=== PATIENT | male | born 1945 | race Caucasian/White ===

== ENCOUNTER → 2016-12-30 | Outpatient (CLI) | payer MEDICARE, OTHER ==
--- NOTE | 2016-12-30 16:34 | CARD ---
APPROVED REPORT EXAM: Two-dimensional and M-mode echocardiogram with Doppler and color Doppler. Other Information Quality : Average Rhythm : NSR INDICATION Dyspnea Fatigue 2D DIMENSIONS RVDd3.2 (2.9-3.5cm)Left Atrium(2D)3.4 (1.6-4.0cm) IVSd1.2 (0.7-1.1cm)Aortic Root(2D)2.7 (2.0-3.7cm) LVDd4.1 (3.9-5.9cm)LVOT Diameter2.0 (1.8-2.4cm) PWd1.2 (0.7-1.1cm)LVDs2.6 (2.5-4.0cm) FS (%) 34.5 %SV51.3 ml LVEF(%)65.0 (>50%) Aortic Valve AoV Peak Tio.142.6cm/sAoV VTI35.4cm AO Peak GR.8.1mmHgLVOT Peak Tio.128.6cm/s LVOT VTI 27.29cmAO Mean GR.5mmHg ASAF (VMAX)2.73lm6HTW (VTI)2.51cm2 Mitral Valve MV E Efaigijo55.7cm/sMV DECEL BGIP718hj MV A Kthzoijw67.4cm/sMV E Mean Gr.2mmHg MV MYB67gsA/A Ratio1.0 MV A Sfvtkhbh305hxNNP (PHT)3.05cm2 TDI E/Lateral E'9.5E/Medial E'10.7 Pulmonary Valve PV Peak Icdtiwun228.0cm/sPV Peak Grad.5mmHg RVOT VTI23.9cm Pulmonary Vein S1 Oervhbhs45.0cm/sD2 Ftqojgls73.5cm/s LEFT VENTRICLE The left ventricle is normal size. There is borderline concentric left ventricular hypertrophy. Left ventricle systolic function is normal. The Ejection Fraction is 65%. There is normal LV segmental wal l motion. The left ventricular diastolic function and filling is normal for age. There is no ventricu lar septal defect visualized. RIGHT VENTRICLE The right ventricle is normal size. The right ventricular systolic function is normal. ATRIA The left atrium size is normal. The right atrium size is normal. The interatrial septum is intact wit h no evidence for an atrial septal defect or patent foramen ovale as noted on 2-D or Doppler imaging. AORTIC VALVE The aortic valve is mildly to moderately calcified. Doppler and Color Flow revealed no significant ao rtic regurgitation. There is no significant aortic valvular stenosis. MITRAL VALVE Mitral annular calcification is mild. There is no mitral valve stenosis. Doppler and Color Flow revea led no mitral valve regurgitation noted. TRICUSPID VALVE The tricuspid valve is normal in structure and function. Doppler and Color Flow revealed no tricuspid valve regurgitation noted. Unable to estimate PP pressure. There is no tricuspid valve stenosis. PULMONIC VALVE The pulmonic valve is not well visualized. Doppler and Color Flow revealed no pulmonic valvular regur gitation. There is no pulmonic valvular stenosis. GREAT VESSELS The aortic root is normal in size. Normal pulmonary venous flow (Doppler). The IVC is normal in size and collapses >50% with inspiration. PERICARDIAL EFFUSION There is no evidence of significant pericardial effusion. Critical Notification Critical Value: No <Conclusion> Left ventricle systolic function is normal. The Ejection Fraction is 65%. There is borderline concentric left ventricular hypertrophy. The left atrium size is normal. The right atrium size is normal. The aortic valve is mildly to moderately calcified. Doppler and Color Flow revealed no significant aortic regurgitation. Mitral annular calcification is mild. Doppler and Color Flow revealed no mitral valve regurgitation noted. The tricuspid valve is normal in structure and function. The pulmonic valve is not well visualized. There is no evidence of significant pericardial effusion.
== END | disposition home or self-care (01) ==
LOC: ECHO 08:38
PROVIDERS: ATTEND Internal Medicine Cardiovascular Disease
DX: I10 Essential (primary) hypertension (principal); I25.10 Atherosclerotic heart disease of native coronary artery without angina pectoris; I51.7 Cardiomegaly; R53.83 Other fatigue; R53.81 Other malaise; R06.00 Dyspnea, unspecified; Z95.1 Presence of aortocoronary bypass graft
CPT/HCPCS: 93306

== ENCOUNTER → 2017-10-28 | Outpatient (CLI) | payer MEDICARE, OTHER | END | disposition home or self-care (01) | LOC: ECHO 12:50 | DX: I51.7 Cardiomegaly (principal); R06.09 Other forms of dyspnea; R53.83 Other fatigue | CPT/HCPCS: 93306 ==

== ENCOUNTER → 2018-08-09 | Outpatient (CLI) | payer MEDICARE, OTHER ==
[~2018-08-09] MED LIST: ALPR0.254 PO; ATEN25TA PO; ATOR40TA59 PO; BENZ1LOZ4 PO; CYCL10TA2 PO; GEMF600T8 PO; GLIM4TAB2 PO; LIDO15SO2 SWSW; LISI-130 PO; METH4TAB PO; NIFE60TA14 PO; OXYC1TAB15 PO; Pantoprazole PO; REGADENOSON 0.4 MG/5 ML DISP.SYRIN. IV ONE; TAMS0.4C97 PO
--- NOTE | 2018-08-09 10:21 | CARD ---
MR#: [id number] Date of Study: 08/09/2018 Ordering Physician: JUVENAL WILLSON, Referring Physician: JUVENAL WILLSON, Tech: Arline Mccabe APPROVED REPORT EXAM: Two-dimensional and M-mode echocardiogram with Doppler and color Doppler. Other Information Quality : AverageHR: 65bpm INDICATION CAD Surgery/Intervention CABG: Date: 1997 RISK FACTORS Hypertension Hyperlipidemia Diabetes Previous smoker 2D DIMENSIONS Left Atrium(2D)3.4 (1.6-4.0cm)IVSd1.3 (0.7-1.1cm) Aortic Root(2D)3.3 (2.0-3.7cm)LVDd5.0 (3.9-5.9cm) PWd1.2 (0.7-1.1cm)LVDs2.0 (2.5-4.0cm) FS (%) 58.7 %SV102.7 ml LVEF(%)88.4 (>50%) Aortic Valve AoV Peak Tio.154.4cm/sAoV VTI34.9cm AO Peak GR.9.5mmHgLVOT Peak Tio.129.1cm/s LVOT VTI 30.24cmAO Mean GR.6mmHg Mitral Valve MV E Yxuqttlm77.9cm/sMV DECEL GHPB435tz MV A Czplyffq887.7cm/sMV RPC89pb E/A Ratio0.9MVA (PHT)3.18cm2 TDI E/Lateral E'8.7E/Medial E'12.5 Pulmonary Valve PV Peak Mefihrsf810.0cm/sPV Peak Grad.5mmHg Tricuspid Valve TR P. Gkstvcxy493ui/sRAP QUPLFFEY5kxLa TR Peak Gr.86cyJxOMZC11ffHo Pulmonary Vein S1 Ssczzqwa85.8cm/sD2 Bfwocilz69.1cm/s PVa oavhyreo994crct LEFT VENTRICLE The left ventricle is normal size. There is moderate concentric left ventricular hypertrophy. The lef t ventricular systolic function is normal and the ejection fraction is within normal range. The Eject ion Fraction is >55%. There is normal LV segmental wall motion. Transmitral Doppler flow pattern is G rade I-abnormal relaxation pattern. RIGHT VENTRICLE The right ventricle is normal size. There is normal right ventricular wall thickness. The right ventr icular systolic function is normal. ATRIA The left atrium size is normal. The right atrium size is normal. The interatrial septum is intact wit h no evidence for an atrial septal defect or patent foramen ovale as noted on 2-D or Doppler imaging. AORTIC VALVE The aortic valve is not well visualized. Doppler and Color Flow revealed no significant aortic regurg itation. There is no significant aortic valvular stenosis. MITRAL VALVE Mitral annular calcification is mild to moderate. There is no evidence of mitral valve prolapse. Ther e is no mitral valve stenosis. Doppler and Color Flow revealed no mitral valve regurgitation noted. TRICUSPID VALVE The tricuspid valve is normal in structure and function. Doppler and Color Flow revealed trace tricus pid regurgitation. There is no tricuspid valve stenosis. PULMONIC VALVE The pulmonic valve is not well visualized. Doppler and Color Flow revealed no pulmonic valvular regur gitation. GREAT VESSELS The aortic root is normal in size. The IVC is normal in size and collapses <50% with inspiration. PERICARDIAL EFFUSION There is no evidence of significant pericardial effusion. Critical Notification Critical Value: No <Conclusion> The left ventricular systolic function is normal and the ejection fraction is within normal range. Th e Ejection Fraction is >55%. There is normal LV segmental wall motion. Signed by : Juvenal Willson, Electronically Approved : 08/09/2018 10:21:03
--- NOTE | 2018-08-09 15:50 | RAD ---
MR#: [id number] Date of Study: 08/09/2018 Ordering Physician: NORMA LAMB, Referring Physician: MELIDA COLIN Tech: RT Destin (R) (N) APPROVED REPORT Test Type: Pharmacological Stress Nurse/Tech: Nettie Mendez R.N. Test Indications: CAD Cardiac History: open heart surg 21 yrs ago, htn dm, hx of dialysis Medications: see ehr Medical History: see ehr Resting ECG: Wide QRS complex Resting Heart Rate: 68 bpm Resting Blood Pressure: 148/66mmHg Pretest Chest Pain: No chest pain Nurse/Tech Notes lungs diminished, heart tones regular Consent: The procedure was explained to the patient in lay terms. Informed consent was witnessed. Ye eout was entered into [employer]. History and Stress Test performed by [facility]. Details Pharmacologic stress testing was performed using 0.4mg per 5ml of regadenoson given intravenously ove r 7-10 seconds. Stress Symptoms No chest pain or symptoms. POST EXERCISE Reason for Termination: Infusion complete Target HR: No Max HR: 78 bpm Max Blood Pressure: 146/63mmHg Chest Pain: No. Arrhythmia: No. ST Change: No. INTERPRETATION Stress EKG Conclusion: SR. No acute ischemic changes. Imaging Protocol IMAGE PROTOCOL: Rest Tc-99m/stress Tc-99m 1 day Rest: Stress: Viability: Radiopharm.Tc99m WkbyjevmeMn54d Sestamibi Yclh82zMb 33mCi Duration 15min. 15min. Img Date 08/09/2018 08/09/2018 Inj-Img Blkx32eoa. 60min. Rest Admin Site:IV - Left HandAdministrator:RT Heidy Weir)(N) Stress Admin Site: IV - Left HandAdministrator: [facility] STRESS DATA End Diast. Vol.99.0mlAv. Heart Rate71.0bpm End Syst. Vol.18.0mlCO Index BSA0.0L/min Myocardial Rurk797.0gEject. Niuumqnc01.0% Stress Rates Pk. Fill Rate3.10EDV/secLVtime Pk. Fill 202.90msec Pk. Empty Rate4.71ESV/secLVtime Pk. Xbruc235.99msec /3 Pk. Fill1.31EDV/sec Stress Scores Regional WT0.00Summed WT0.00 Regional WM0.00Summed WM2.00 The rest and stress images show normal perfusion, normal contraction and thickening. LV Perf. Quant 17 Seg. SSS4.00 17 Seg. SRS0.00 17 Seg. SDS4.00 Stress Defect Extent (% LAD)0.00Rest Defect Extent (% LAD)0.00Rev. Defect Extent (% LAD)0.00 Stress Defect Extent (% LCX) 22.50Rest Defect Extent (% LCX)0.00Rev. Defect Extent (% LCX)15.00 Stress Defect Extent (% RCA)2.20Rest Defect Extent (% RCA)0.00Rev. Defect Extent (% RCA)2.20 Stress Defect Extent (% KURT)5.40Rest Defect Extent (% KURT)0.00Rev. Defect Extent (% KURT)4.10 Other Information Quality:Good Risk Assessment: Low Risk Conclusion 1. No evidence of EKG changes with stress testing. 2. Normal perfusion at stress/rest. 3. Low risk study. 4. EF > 60%. Signed by : Juvenal Willson, Electronically Approved : 08/09/2018 15:50:22
--- NOTE | 2018-08-09 15:55 | RAD ---
MR#: [id number] Date of Study: 08/09/2018 Ordering Physician: NORMA LAMB, Referring Physician: CINDY GARCIA, Tech: ESTEVAN Rodriguez, RDMS, RTR APPROVED REPORT Patient Location: OUT-PATIENT Risk Factors Hypertension Diabetes CAD VELOCITY AND DOPPLER WAVEFORM ANALYSIS RIGHT cm/secWaveformSeverity LEFT cm/secWaveform Severity pCFA 219.8BiphasicpCFA 237.2Biphasic Prof Fem Art. 93.4Prof Fem Art. 114.5 Fem Art Prox. 137.7BiphasicFem Art Prox. 122.6Biphasic Fem Art Mid. 155.0BiphasicFem Art Mid. 144.6Biphasic Fem Art Dist. 155.0BiphasicFem Art Dist. 214.0Biphasic Pop Art(Fossa) 101.8BiphasicPop Art([place]) 90.7Biphasic PRIMARY SCHOOL PRINCIPAL Dist. 47.9BiphasicPTA Dist. 72.0Biphasic Per Art Dist.47.9BiphasicPer Art Dist.56.7Biphasic HEMA Dist. 90.0BiphasicATA Dist. 39.0Biphasic Findings Grayscale images of the bilateral lower extremity arterial tree reveals significant atherosclerotic b urden. There is diffuse calcification to the below-knee vessels. Spectral waveforms in the bilateral common femoral arteries and velocities are elevated suggestive of approximately 50% stenosis. The velocities in the distal superficial femoral artery are elevated on the left greater than the rig ht suggestive of approximately 50% stenosis on the left. There is three-vessel runoff below the knee bilaterally with slightly diminished but biphasic velocit ies in all vessels. Critical Notification Critical Value: No <Conclusion> 1. Suspect moderate diffuse disease involving the common femoral arteries, superficial femoral arteri es and below-knee vessels. No focal high-grade stenosis identified except perhaps in the distal left superficial femoral artery which by velocity criteria is probably slightly greater than 50%. Signed by : Cindy Garcia, Electronically Approved : 08/09/2018 15:55:28
== END | disposition home or self-care (01) ==
LOC: ECHO 08:00
PROVIDERS: ATTEND Internal Medicine Cardiovascular Disease
DX: I25.10 Atherosclerotic heart disease of native coronary artery without angina pectoris (principal); E11.9 Type 2 diabetes mellitus without complications; I70.0 Atherosclerosis of aorta; E78.5 Hyperlipidemia, unspecified; I11.9 Hypertensive heart disease without heart failure; R00.8 Other abnormalities of heart beat; Z87.891 Personal history of nicotine dependence
CPT/HCPCS: 78452; 93017; 93306; 93925; 96374; 96376; J2785; A9500

== ENCOUNTER 2018-09-02 09:07 | Inpatient (IN) | payer MEDICARE, OTHER ==
[~2018-09-02] VITALS: Ht 177.8 cm; Wt 102.6 kg
[2018-09-02] MEDS ORDERED: fentaNYL PF VIAL 100 MCG/2 ML VIAL IV ONE (09:45)
--- NOTE | 2018-09-02 10:01 | PHYS DOC ---
Past Medical History Past Medical History: Cancer, Diabetes-Type II, High Cholesterol, Hypertension , Other Additional Past Medical Histor: L EYE CA Past Surgical History: Appendectomy, Cholecystectomy, Coronary Bypass Surgery, Hip Replacement, Other Additional Past Surgical Histo: ORIF L LEG,L EYE ENUCLEATED Alcohol Use: None Drug Use: None Adult General Chief Complaint Chief Complaint: Neck Pain HPI HPI Patient is a 73 year old male who presents with with complaining of neck pain. Patient complaining of constant neck pain for the last 3 days as a constant pain that getting force with movement of his head. Patient states he gets episodes of muscle spasm as severe pain and rated his pain as a 10 over 10. Patient denies fever, focal neuro deficit, neck injury, nausea and vomiting, chest pain, shortness of breath. Patient complaining of sore throat because of keeping his head bend while eating. Patient states he was seen at urgent care and treated with baclofen without improvement of his pain. Review of Systems Review of Systems Constitutional: Denies fever or chills [] Eyes: Denies change in visual acuity, redness, or eye pain [] HENT: Denies nasal congestion, reports sore throat [] Respiratory: Denies cough or shortness of breath [] Cardiovascular: No additional information not addressed in HPI [] GI: Denies abdominal pain, nausea, vomiting, bloody stools or diarrhea [] : Denies dysuria or hematuria [] Musculoskeletal: Reports neck pain, denies back pain or joint pain [] Integument: Denies rash or skin lesions [] Neurologic: Denies headache, focal weakness or sensory changes [] Endocrine: Denies polyuria or polydipsia [] All other systems were reviewed and found to be within normal limits, except as documented in this note. Current Medications Current Medications Current Medications Medications (Trade) Dose Ordered Sig/Fili Start Time Stop Time Status Last Admin Dose Admin Fentanyl Citrate (Fentanyl 2ml Vial) 50 mcg 1X ONCE 09/02/18 09:45 09/02/18 09:48 DC 09/02/18 10:10 50 MCG Lorazepam (Ativan) 1 mg 1X ONCE 09/02/18 11:00 09/02/18 11:01 DC 09/02/18 11:17 1 MG Ondansetron HCl (Zofran) 4 mg 1X ONCE 09/02/18 10:15 09/02/18 10:16 DC Allergies Allergies Allergies Coded Allergies Type Severity Reaction Last Updated Verified Penicillins Allergy Intermediate 09/02/18 Yes Uncoded Allergies Type Severity Reaction Last Updated Verified MEDICAL TAPE Allergy Unknown 09/02/18 Physical Exam Physical Exam Constitutional: Well developed, well nourished, moderate distress, non-toxic appearance. [] HENT: Normocephalic, atraumatic, bilateral external ears normal, unable to check pharyngeal area because of the position of the head Eyes:Left eye enucleation Neck: Head is bending and avoid of movement in his neck, muscle spasm and tenderness in left side of his neck Cardiovascular:Heart rate regular rhythm, no murmur [] Lungs & Thorax: Bilateral breath sounds clear to auscultation [] Back: No tenderness, no CVA tenderness. [] Extremities: No tenderness, no cyanosis, no clubbing, ROM intact, no edema. [] Neurologic: Alert and oriented X 3, normal motor function, normal sensory function, no focal deficits noted. [] Psychologic: Affect normal, judgement normal, mood normal. [] Current Patient Data Vital Signs Vital Signs Date Time Temp Pulse Resp B/P (MAP) Pulse Ox O2 Delivery O2 Flow Rate FiO2 09/02/18 11:04 64 191/80 (117) 97 Room Air 09/02/18 10:42 24 09/02/18 09:33 98.0 98.0 Lab Values Laboratory Tests Test 09/02/18 10:01 White Blood Count 11.3 x10^3/uL (4.0-11.0) H Red Blood Count 4.44 x10^6/uL (4.30-5.70) Hemoglobin 13.5 g/dL (13.0-17.5) Hematocrit 39.4 % (39.0-53.0) Mean Corpuscular Volume 89 fL (79-100) Mean Corpuscular Hemoglobin 31 pg (25-35) Mean Corpuscular Hemoglobin Concent 34 g/dL (31-37) Red Cell Distribution Width 13.6 % (11.5-14.5) Platelet Count 260 x10^3/uL (140-400) Neutrophils (%) (Auto) 80 % (31-73) H Lymphocytes (%) (Auto) 7 % (24-48) L Monocytes (%) (Auto) 12 % (0-9) H Eosinophils (%) (Auto) 1 % (0-3) Basophils (%) (Auto) 0 % (0-3) Neutrophils # (Auto) 9.0 x10^3uL (1.8-7.7) H Lymphocytes # (Auto) 0.8 x10^3/uL (1.0-4.8) L Monocytes # (Auto) 1.4 x10^3/uL (0.0-1.1) H Eosinophils # (Auto) 0.1 x10^3/uL (0.0-0.7) Basophils # (Auto) 0.0 x10^3/uL (0.0-0.2) Sodium Level 136 mmol/L (136-145) Potassium Level 4.3 mmol/L (3.5-5.1) Chloride Level 101 mmol/L (98-107) Carbon Dioxide Level 23 mmol/L (21-32) Anion Gap 12 (6-14) Blood Urea Nitrogen 18 mg/dL (8-26) Creatinine 0.7 mg/dL (0.7-1.3) Estimated GFR (Cockcroft-Gault) 111.2 BUN/Creatinine Ratio 26 (6-20) H Glucose Level 206 mg/dL (70-99) H Lactic Acid Level 1.2 mmol/L (0.4-2.0) Calcium Level 9.7 mg/dL (8.5-10.1) Total Bilirubin 0.7 mg/dL (0.2-1.0) Aspartate Amino Transferase (AST) 21 U/L (15-37) Alanine Aminotransferase (ALT) 25 U/L (16-63) Alkaline Phosphatase 64 U/L (46-116) Creatine Kinase 96 U/L (39-308) Total Protein 7.0 g/dL (6.4-8.2) Albumin 3.8 g/dL (3.4-5.0) Albumin/Globulin Ratio 1.2 (1.0-1.7) Laboratory Tests 09/02/18 10:01 Laboratory Tests 09/02/18 10:01 EKG EKG [] Radiology/Procedures Radiology/Procedures [facility] [address] [address] IMAGING REPORT Signed PATIENT: YONY SCHREIBER ACCOUNT: [id number] : 1945 LOCATION: [address] [place] [address] AGE: 73 SEX: M EXAM STATUS: ADM IN ORD. PHYSICIAN: ANDREINA CAI MD REASON: neck stiffness PROCEDURE: CT HEAD AND CERVICAL SPINE WO CT HEAD AND CERVICAL SPINE WO Clinical indications: neck stiffness, no priors NONCONTRAST HEAD CT Technique: Noncontrast axial cross sectional scanning of the head was performed. PQRS compliance Statement One or more of the following individualized dose reduction techniques were utilized for this study: 1. Automated exposure control 2. Adjustment of the mA and/or kV according to patient size 3. Use of iterative reconstruction technique Findings: No acute intracranial hemorrhage or midline shift or mass-effect or hydrocephalus or extra-axial fluid collection is seen. No focal hypodense area or sulci effacement is seen to indicate an acute infarct or edema radiographically. No skull fracture or pneumocephalus is seen. No opacification of the mastoid sinuses or the paranasal sinuses is seen. Impression: No acute intracranial abnormality is seen. The globe of the left orbit is dense and small in size. This could be due to a prosthesis or old trauma. A vitreous hemorrhage may have this appearance as well. Correlation with clinical history is needed. NONCONTRAST CERVICAL SPINE CT TECHNIQUE: Noncontrast helical CT scanning of the cervical spine was performed. Multiplanar 2-D reconstructions were generated. FINDINGS: No acute fracture or discitis or lytic process is seen. Grade 1 anterolisthesis of C3-4 and C4-5 and C5-6 is seen related to degenerative facet arthropathy. There is severe degenerative disc space narrowing and moderate degenerative endplate spurring at C6-7 and C7-T1. There is a moderate AP dimensional spinal canal stenosis worse on the left side at C6-7 and a mild spinal canal stenosis at C7-T1. There is moderate narrowing of the right neural foramen at C6-7 and the left neural foramen at C7-T1. There is moderate to severe narrowing of the left neural foramen at C5-6 and severe narrowing of the left neural foramen at C4-5 and on the right side at C3-4 and moderate narrowing of the left neural foramen at C2-3. IMPRESSION: No acute fracture. Degenerative cervical spondylosis most marked at C6-7 and C7-T1. Multilevel neural foraminal narrowing as discussed above. Electronically signed by: Nelson Kennedy MD (09/02/2018 1:00 PM) [place] [id number] DICTATED and SIGNED BY: NELSON KENNEDY MD DATE: 09/02/18 1300 Course & Med Decision Making Course & Med Decision Making Pertinent Labs and Imaging studies reviewed. (See chart for details) Evaluation of patient in ER showed 73-year-old male patient with complaining of left-sided neck pain for the last 3 days that getting worse with movement of his head. Patient holding his head on bending position was to time. Labs was unremarkable. CT of head and cervical spine did not show acute finding except for chronic spinal stenosis. Patient had elevation of blood pressure at 205 because of not taking his medication today that gradually improved. Patient treated with fentanyl, Ativan, morphine with partial improvement of the pain. Plan to admit patient because of intractable cervical pain. Patient did not have meningeal sign. Patient requiring admission for further evaluation and treatment. Discussed with Dr. Pollock who is in agreement with admission. Discussed findings and plan with patient and family, who acknowledge understanding and agreement. Dragon Disclaimer Dragon Disclaimer This electronic medical record was generated, in whole or in part, using a voice recognition dictation system. Departure Departure Impression: Primary Impression: Cervical pain Additional Impressions: Cervical stenosis of spinal canal Hypertensive urgency Disposition: ADMITTED INPATIENT (at 1137) Admitting Physician: Nadia Pollock (accepted admission at 1137) Condition: IMPROVED Referrals: LESTER PAGE MD (PCP) Problem Qualifiers ANDREINA CAI MD Sep 02, 2018 10:01
[2018-09-02 10:13] LABS: BASO % 0 % (0-3); EOS # 0.1 x10^3/uL (0.0-0.7); EOS % 1 % (0-3); HEMATOCRIT 39.4 % (39.0-53.0); HEMOGLOBIN 13.5 g/dL (13.0-17.5); LYMPH # 0.8 x10^3/uL (1.0-4.8); LYMPH % 7 % (24-48); MEAN CORPUSCULAR HEMOGLOBIN 31 pg (25-35); MEAN CORPUSCULAR HGB CONC 34 g/dL (31-37); MEAN CORPUSCULAR VOLUME 89 fL (79-100); MONO # 1.4 x10^3/uL (0.0-1.1); MONO % 12 % (0-9); NEUT % 80 % (31-73); PLATELET COUNT 260 x10^3/uL (140-400); RED BLOOD COUNT 4.44 x10^6/uL (4.30-5.70); RED CELL DISTRIBUTION WIDTH 13.6 % (11.5-14.5); WHITE BLOOD COUNT 11.3 x10^3/uL (4.0-11.0)
[2018-09-02] MEDS ORDERED: ONDANSETRON PF 4 MG/2 ML VIAL. IV ONE (10:15)
[2018-09-02 10:22] LABS: CALCIUM 9.7 mg/dL (8.5-10.1); CREATININE 0.7 mg/dL (0.7-1.3); GFR 111.2; POTASSIUM 4.3 mmol/L (3.5-5.1)
[2018-09-02 10:37] LABS: ALBUMIN 3.8 g/dL (3.4-5.0); ALBUMIN/GLOBULIN RATIO 1.2 (1.0-1.7); TOTAL BILIRUBIN 0.7 mg/dL (0.2-1.0)
[2018-09-02] MEDS ORDERED: MORPHINE SULFATE 4 MG/ML VIAL. IV ONE (11:30)
[2018-09-02] MEDS ORDERED: ALPRAZolam 0.25 MG TABLET PO PRN (12:45)
[2018-09-02] MEDS ORDERED: oxyCODONE/APAP 5/325 1 TAB TABLET PO PRN (12:45)
[2018-09-02] MEDS ORDERED: MORPHINE SULFATE 2 MG/ML VIAL. IV PRN (12:45)
[2018-09-02] MEDS ORDERED: hydrALAZINE 20 MG/ML VIAL. IVP PRN (12:45)
--- NOTE | 2018-09-02 13:02 | RAD ---
CT HEAD AND CERVICAL SPINE WO Clinical indications: neck stiffness, no priors NONCONTRAST HEAD CT Technique: Noncontrast axial cross sectional scanning of the head was performed. PQRS compliance Statement One or more of the following individualized dose reduction techniques were utilized for this study: 1. Automated exposure control 2. Adjustment of the mA and/or kV according to patient size 3. Use of iterative reconstruction technique Findings: No acute intracranial hemorrhage or midline shift or mass-effect or hydrocephalus or extra-axial fluid collection is seen. No focal hypodense area or sulci effacement is seen to indicate an acute infarct or edema radiographically. No skull fracture or pneumocephalus is seen. No opacification of the mastoid sinuses or the paranasal sinuses is seen. Impression: No acute intracranial abnormality is seen. The globe of the left orbit is dense and small in size. This could be due to a prosthesis or old trauma. A vitreous hemorrhage may have this appearance as well. Correlation with clinical history is needed. NONCONTRAST CERVICAL SPINE CT TECHNIQUE: Noncontrast helical CT scanning of the cervical spine was performed. Multiplanar 2-D reconstructions were generated. FINDINGS: No acute fracture or discitis or lytic process is seen. Grade 1 anterolisthesis of C3-4 and C4-5 and C5-6 is seen related to degenerative facet arthropathy. There is severe degenerative disc space narrowing and moderate degenerative endplate spurring at C6-7 and C7-T1. There is a moderate AP dimensional spinal canal stenosis worse on the left side at C6-7 and a mild spinal canal stenosis at C7-T1. There is moderate narrowing of the right neural foramen at C6-7 and the left neural foramen at C7-T1. There is moderate to severe narrowing of the left neural foramen at C5-6 and severe narrowing of the left neural foramen at C4-5 and on the right side at C3-4 and moderate narrowing of the left neural foramen at C2-3. IMPRESSION: No acute fracture. Degenerative cervical spondylosis most marked at C6-7 and C7-T1. Multilevel neural foraminal narrowing as discussed above. Electronically signed by: Kai Kennedy MD (09/02/2018 1:00 PM) [place] [id number]
--- NOTE | 2018-09-02 13:08 | PDOC1 ---
History and Physical Date of Admission Date of Admission DATE: 09/02/18 TIME: 13:03 Identification/Chief Complaint Chief Complaint sudden onset neck pain Source Source: Caregiver, Chart review, Patient History of Present Illness History of Present Illness 73-year-old male who lives at home with , denies trauma to the neck but sudden onset of neck pain that he cannot extend or look straightforward. NO Tingling or numbness in bilateral upper extremities. No weakness. He maintains his neck in a flexed position and is undergoing spasms intermittently. Got Ativan and morphine and other pain medicine and now slightly confused at the ER. Labs are unremarkable. We are admitting for this neck spasm/neck pain and inability to actually hold the head up high bec of the spasm and pain. CT soft tissue neck is still pending. Vital signs/blood pressure on the high side Past Medical History Cardiovascular: HTN Endocrine: Diabetes Past Surgical History Past Surgical History: Appendectomy, Cholecystectomy, CABG, Total hip replacement Family History Family History: High Cholestrol, Hypertension Social History Smoke: No ALCOHOL: occassional Drugs: None Current Problem List Problem List Problems Medical Problems: (1) Cervical pain Status: Acute Current Medications Current Medications Current Medications Fentanyl Citrate (Fentanyl 2ml Vial) 50 mcg 1X ONCE IV Last administered on 04/12at 10:10; Start 09/02/18 at 09:45; Stop 09/02/18 at 09:48; Status DC Ondansetron HCl (Zofran) 4 mg 1X ONCE IV ; Start 09/02/18 at 10:15; Stop at 10:16; Status DC Lorazepam (Ativan) 1 mg 1X ONCE IV Last administered on 09/02/18at 11:17; Start 09/02/18 at 11:00; Stop 09/02/18 at 11:01; Status DC Morphine Sulfate (Morphine Sulfate) 4 mg 1X ONCE IV ; Start 09/02/18 at 11:30; Stop 09/02/18 at 11:31; Status DC Alprazolam (Xanax) 0.25 mg PRN Q8HRS PRN PO ANXIETY / AGITATION; Start at 12:45 Cyclobenzaprine HCl (Flexeril) 10 mg TID PO ; Start 09/02/18 at 14:00 Morphine Sulfate (Morphine Sulfate) 2 mg PRN Q2HR PRN IV PAIN; Start 09/02/18 at 12:45 Hydralazine HCl (Apresoline Inj) 10 mg PRN Q4HRS PRN IVP ELEVATED BP, SEE COMMENTS; Start 09/02/18 at 12:45 Oxycodone/ Acetaminophen (Percocet 5/325) 1 tab PRN Q4HRS PRN PO PAIN; Start at 12:45 Allergies Allergies: Coded Allergies: Penicillins (Verified Allergy, Intermediate, 09/02/18) Uncoded Allergies: MEDICAL TAPE (Allergy, Unknown, 09/02/18) ROS Review of System Having spasms, the rest of ROS is per history of present illness Physical Exam General: Alert, Oriented X3, Cooperative HEENT: Atraumatic, PERRLA, EOMI, Mucous membr. moist/pink, Other (his neck is flexed, difficulty maintaining or elevating the neck in the normal position- spasms body) Lungs: Clear to auscultation Heart: S1S2, RRR, no thrills, no rubs, no gallops, no murmurs Cardiovascular: S1 Abdomen: Normal bowel sounds, Soft, No tenderness, No hepatosplenomegaly, No masses Male Genitals Exam: normal genitalia, normal prostate Rectal Exam: not examined PELVIC: Nml ext genitalia Extremities: No clubbing, No cyanosis, No edema, Normal pulses, No tenderness/ swelling Skin: No rashes, No breakdown, No significant lesion Neuro: Normal gait, Normal speech, Strength at 5/5 X4 ext, Normal tone, Sensation intact, Cranial nerves 3-12 NL, Reflexes 2+ Psych/Mental Status: Mental status NL, Mood NL Vitals Vitals Vital Signs Date Time Temp Pulse Resp B/P (MAP) Pulse Ox O2 Delivery O2 Flow Rate FiO2 09/02/18 10:40 17 95 Room Air 09/02/18 09:33 98.0 71 205/92 (129) 98.0 Labs Labs Laboratory Tests Test 09/02/18 10:01 White Blood Count 11.3 x10^3/uL (4.0-11.0) Red Blood Count 4.44 x10^6/uL (4.30-5.70) Hemoglobin 13.5 g/dL (13.0-17.5) Hematocrit 39.4 % (39.0-53.0) Mean Corpuscular Volume 89 fL (79-100) Mean Corpuscular Hemoglobin 31 pg (25-35) Mean Corpuscular Hemoglobin Concent 34 g/dL (31-37) Red Cell Distribution Width 13.6 % (11.5-14.5) Platelet Count 260 x10^3/uL (140-400) Neutrophils (%) (Auto) 80 % (31-73) Lymphocytes (%) (Auto) 7 % (24-48) Monocytes (%) (Auto) 12 % (0-9) Eosinophils (%) (Auto) 1 % (0-3) Basophils (%) (Auto) 0 % (0-3) Neutrophils # (Auto) 9.0 x10^3uL (1.8-7.7) Lymphocytes # (Auto) 0.8 x10^3/uL (1.0-4.8) Monocytes # (Auto) 1.4 x10^3/uL (0.0-1.1) Eosinophils # (Auto) 0.1 x10^3/uL (0.0-0.7) Basophils # (Auto) 0.0 x10^3/uL (0.0-0.2) Sodium Level 136 mmol/L (136-145) Potassium Level 4.3 mmol/L (3.5-5.1) Chloride Level 101 mmol/L (98-107) Carbon Dioxide Level 23 mmol/L (21-32) Anion Gap 12 (6-14) Blood Urea Nitrogen 18 mg/dL (8-26) Creatinine 0.7 mg/dL (0.7-1.3) Estimated GFR (Cockcroft-Gault) 111.2 BUN/Creatinine Ratio 26 (6-20) Glucose Level 206 mg/dL (70-99) Lactic Acid Level 1.2 mmol/L (0.4-2.0) Calcium Level 9.7 mg/dL (8.5-10.1) Total Bilirubin 0.7 mg/dL (0.2-1.0) Aspartate Amino Transf (AST/SGOT) 21 U/L (15-37) Alanine Aminotransferase (ALT/SGPT) 25 U/L (16-63) Alkaline Phosphatase 64 U/L (46-116) Creatine Kinase 96 U/L (39-308) Total Protein 7.0 g/dL (6.4-8.2) Albumin 3.8 g/dL (3.4-5.0) Albumin/Globulin Ratio 1.2 (1.0-1.7) Laboratory Tests Test 09/02/18 10:01 White Blood Count 11.3 x10^3/uL (4.0-11.0) Red Blood Count 4.44 x10^6/uL (4.30-5.70) Hemoglobin 13.5 g/dL (13.0-17.5) Hematocrit 39.4 % (39.0-53.0) Mean Corpuscular Volume 89 fL (79-100) Mean Corpuscular Hemoglobin 31 pg (25-35) Mean Corpuscular Hemoglobin Concent 34 g/dL (31-37) Red Cell Distribution Width 13.6 % (11.5-14.5) Platelet Count 260 x10^3/uL (140-400) Neutrophils (%) (Auto) 80 % (31-73) Lymphocytes (%) (Auto) 7 % (24-48) Monocytes (%) (Auto) 12 % (0-9) Eosinophils (%) (Auto) 1 % (0-3) Basophils (%) (Auto) 0 % (0-3) Neutrophils # (Auto) 9.0 x10^3uL (1.8-7.7) Lymphocytes # (Auto) 0.8 x10^3/uL (1.0-4.8) Monocytes # (Auto) 1.4 x10^3/uL (0.0-1.1) Eosinophils # (Auto) 0.1 x10^3/uL (0.0-0.7) Basophils # (Auto) 0.0 x10^3/uL (0.0-0.2) Sodium Level 136 mmol/L (136-145) Potassium Level 4.3 mmol/L (3.5-5.1) Chloride Level 101 mmol/L (98-107) Carbon Dioxide Level 23 mmol/L (21-32) Anion Gap 12 (6-14) Blood Urea Nitrogen 18 mg/dL (8-26) Creatinine 0.7 mg/dL (0.7-1.3) Estimated GFR (Cockcroft-Gault) 111.2 BUN/Creatinine Ratio 26 (6-20) Glucose Level 206 mg/dL (70-99) Lactic Acid Level 1.2 mmol/L (0.4-2.0) Calcium Level 9.7 mg/dL (8.5-10.1) Total Bilirubin 0.7 mg/dL (0.2-1.0) Aspartate Amino Transf (AST/SGOT) 21 U/L (15-37) Alanine Aminotransferase (ALT/SGPT) 25 U/L (16-63) Alkaline Phosphatase 64 U/L (46-116) Creatine Kinase 96 U/L (39-308) Total Protein 7.0 g/dL (6.4-8.2) Albumin 3.8 g/dL (3.4-5.0) Albumin/Globulin Ratio 1.2 (1.0-1.7) VTE Prophylaxis Ordered VTE Prophylaxis Devices: Yes VTE Pharmacological Prophylaxi: Yes Assessment/Plan Assessment/Plan NEw onset neck pain but no trauma Fixed neck flexion with difficulty extending or maintaining a normal position Body spasms- new Hypertension, diabetes chronic stable History CABG, hip surgery, appendectomy, cholecystectomy Obesity BMI 33 Plan: Admit 2 [place] Physiatry consult, trial of Flexeril-baclofen did not do anything as prescribed by PCP PT OT Awaiting CT soft tissue neck cannot remember home meds, but can continue everything as labs are okay JEANINE GARCIA MD Sep 02, 2018 13:08
[2018-09-02] MEDS ORDERED: LISI-130 PO (13:34)
[2018-09-02] MEDS ORDERED: TAMS0.4C97 PO (13:36)
[2018-09-02] MEDS ORDERED: GEMF600T8 PO (13:36)
[2018-09-02] MEDS ORDERED: ATEN25TA PO (13:36)
[2018-09-02] MEDS ORDERED: GLIM4TAB2 PO (13:36)
[2018-09-02] MEDS ORDERED: ATOR40TA59 PO (13:36)
[2018-09-02] MEDS ORDERED: NIFE60TA14 PO (13:38)
[2018-09-02] MEDS: CYCLOBENZAPRINE 10 MG TABLET. PO SCH ×2 (14:27→22:12)
[2018-09-02] MEDS: LISINOPRIL 20 MG TABLET PO SCH (14:28)
[2018-09-02] MEDS: GLIMEPIRIDE 2 MG TABLET. PO SCH (14:45)
[2018-09-02 15:00] VITALS: BP 131/65
[2018-09-02] MEDS ORDERED: methylPREDNISolone ACETATE 40 MG/ML VIAL. IM ONE ×2 (15:00)
[2018-09-02] MEDS ORDERED: BUPIVACAINE MPF 0.25% 10 ML VIAL. IJ ONE (15:00)
[2018-09-02 19:00] VITALS: BP 146/73
[2018-09-02] MEDS: ATORVASTATIN CALCIUM 40 MG TABLET. PO SCH (22:12)
[2018-09-02] MEDS: GEMFIBROZIL 600 MG TABLET. PO SCH (22:12)
[2018-09-02] MEDS: TAMSULOSIN 0.4 MG CAP.ER.24H. PO SCH (22:12)
[2018-09-02] MEDS: ATENOLOL 25 MG TABLET. PO SCH (22:13)
[2018-09-02] MEDS: ASPIRIN 325 MG TABLET PO PRN (22:24)
[2018-09-02 23:00] VITALS: BP 171/70
--- NOTE | 2018-09-02 23:00 | NUR ---
Administered patients 2100 meds late at the request of the family. The wanted to be present when they were administered.
[2018-09-02 23:20] VITALS: BP 158/71
[2018-09-03 03:00] VITALS: BP 112/61
--- NOTE | 2018-09-03 04:32 | CONS ---
DATE OF CONSULTATION: LOCATION: Room 526. ATTENDING PHYSICIAN: Dr. Pollock. The patient was seen at the request of Dr. Pollock for rehab evaluation. 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 He lives with his who is a retired nurse at this medical center, has plenty of steps to manage. The patient with chronic neck pain and stiffness on and off going on for years, but he admits significant worsening of his neck pain with radiation to both upper extremities with associated tingling and numbness sensation in both upper extremities for the last one week. He was seen in the urgent care clinic and was given muscle relaxant medication, baclofen. The patient was admitted through the Emergency Room with severe pain. The patient with known hypertension, diabetes mellitus, status post appendectomy, cholecystectomy, coronary artery bypass graft and right total hip arthroplasty. Family history of hypercholesterolemia and hypertension. He has been independent with his mobility and self-care skills, not using any assistive devices prior to the onset of present problem about a week ago. He denies any specific injury or fall. The patient admits to severe pain with any movement of his neck. He prefers to keep his neck in flexion position. The patient is known ALLERGIC TO PENICILLIN AND MEDICAL TAPE, apparently had some problems with taking narcotic pain medication after he had total hip arthroplasty with confusion. He was ____ take aspirin about 4 tablets on an as needed basis for pain without any GI discomfort. The patient admits occasional urinary incontinence since the present problem started. He had a bowel movement yesterday. He had a CT scan of cervical vertebrae done this morning, which revealed no acute fracture or diskitis or lytic process, grade 1 anterolisthesis of C3 on C4, C4 on C5, C5 on C6, is seen related to degenerative facet arthropathy, severe degenerative disk space narrowing and moderate degenerative endplate spurring at C6-C7 and C7-T1, also moderate AP dimensional spinal canal stenosis, worse on the left side at C6-C7, mild spinal canal stenosis at C7-T1, moderate narrowing of right neural foramen at C6-C7 and left neural foramen at C7-T1, [id number] narrowing of the left neural foramen at C5-C6 and severe narrowing of left neural foramen at C4-C5 and on the right side at C3-C4 and moderate narrowing of the left neural foramen at C2-C3. PHYSICAL EXAMINATION: The patient on physical examination today revealed a middle-aged male. He is alert, in moderate distress about his neck pain. He keeps his neck in forward flexion position and he had significant tenderness to palpation over cervical paraspinal muscles and any movement of his neck causes severe discomfort. He had 5/5 grade muscle strength in his upper and lower extremities and deep tendon reflexes are decreased overall with absent knee and ankle jerks and he had painful range of motion of both hip and knee joints. He had some edema of his feet and legs to some extent. He seemed to have equal perception of touch and pinprick sensation bilaterally. I did not test his mobility skills as he is in significant discomfort with any movement of his neck. ASSESSMENT: A middle-aged male with degenerative disk disease and degenerative joint disease of cervical vertebrae with cervical radiculitis with significant increase with his neck pain for the last one week without any specific injury. The patient with diabetes mellitus with peripheral neuropathy, hypertension, status post right total hip arthroplasty, coronary artery bypass graft, cholecystectomy and appendectomy. RECOMMENDATIONS: Agree with the plan per physical therapy and occupational therapy. To proceed with MRI scan of his cervical vertebrae to rule out any significant central spinal stenosis. To consider neurosurgical consult. To proceed with trigger point injection to help ease his neck pain and if there is a new disk bulging as per MRI scan to start him on Medrol Dosepak. To also consider referral to pain clinic for consideration of cervical epidural steroid injection if his pain persists. Dr. Pollock, appreciate asking me to participate in the care of this interesting patient. I will be glad to follow him with you as needed for the rehabilitation. JEANIE ARREDONDO MD DR: NABILA/ben JOB#: [id number] / [id number]
[2018-09-03 07:00] VITALS: BP 150/63
[2018-09-03] MEDS: CYCLOBENZAPRINE 10 MG TABLET. PO SCH ×3 (08:53→20:46)
[2018-09-03] MEDS: GEMFIBROZIL 600 MG TABLET. PO SCH ×2 (08:53→20:46)
[2018-09-03] MEDS: GLIMEPIRIDE 2 MG TABLET. PO SCH (08:54)
[2018-09-03] MEDS: LISINOPRIL 20 MG TABLET PO SCH (08:55)
[2018-09-03] MEDS ORDERED: GLIMEPIRIDE 2 MG TABLET. PO SCH (09:00)
[2018-09-03] MEDS ORDERED: LISINOPRIL 20 MG TABLET PO SCH (09:00)
--- NOTE | 2018-09-03 10:24 | PDOC ---
PROGRESS NOTES Subjective Subjective He admits continued neck pain and stiffness but somewhat less. He could not tolerate to relax for mri scan despite receiving morphine for pain control. Objective Objective Vital Signs Date Time Temp Pulse Resp B/P (MAP) Pulse Ox O2 Delivery O2 Flow Rate FiO2 09/03/18 09:25 14 94 Room Air 09/03/18 08:55 60 150/63 09/03/18 07:00 99.0 99.0 Intake and Output 09/03/18 07:00 Intake Total 120 ml Output Total 302 ml Balance -182 ml Intake Oral 120 ml Output Urine Total 302 ml Physical Exam Physical Exam He is supine in bed ,alert,and continues with tenderness to palpation over cervical paraspinal muscles with painfully limited cervical spine ROM.He is getting up and walking to bath room. Assessment Assessment Problems Medical Problems: (1) Cervical pain Status: Acute (2) Cervical stenosis of spinal canal Status: Acute (3) Hypertensive urgency Status: Acute Plan Plan of Care To hold off trigger point injections as he is improving with flexeril,ice packs and physical therapy modalities.To start him on medrol dose pack and hopefully home when his pain is under better control in the next few days. Comment Review of Relevant I have reviewed the following items rian (where applicable) has been applied. Labs Laboratory Tests Test 09/02/18 10:01 09/02/18 20:43 09/03/18 07:47 White Blood Count 11.3 x10^3/uL (4.0-11.0) Red Blood Count 4.44 x10^6/uL (4.30-5.70) Hemoglobin 13.5 g/dL (13.0-17.5) Hematocrit 39.4 % (39.0-53.0) Mean Corpuscular Volume 89 fL (79-100) Mean Corpuscular Hemoglobin 31 pg (25-35) Mean Corpuscular Hemoglobin Concent 34 g/dL (31-37) Red Cell Distribution Width 13.6 % (11.5-14.5) Platelet Count 260 x10^3/uL (140-400) Neutrophils (%) (Auto) 80 % (31-73) Lymphocytes (%) (Auto) 7 % (24-48) Monocytes (%) (Auto) 12 % (0-9) Eosinophils (%) (Auto) 1 % (0-3) Basophils (%) (Auto) 0 % (0-3) Neutrophils # (Auto) 9.0 x10^3uL (1.8-7.7) Lymphocytes # (Auto) 0.8 x10^3/uL (1.0-4.8) Monocytes # (Auto) 1.4 x10^3/uL (0.0-1.1) Eosinophils # (Auto) 0.1 x10^3/uL (0.0-0.7) Basophils # (Auto) 0.0 x10^3/uL (0.0-0.2) Sodium Level 136 mmol/L (136-145) Potassium Level 4.3 mmol/L (3.5-5.1) Chloride Level 101 mmol/L (98-107) Carbon Dioxide Level 23 mmol/L (21-32) Anion Gap 12 (6-14) Blood Urea Nitrogen 18 mg/dL (8-26) Creatinine 0.7 mg/dL (0.7-1.3) Estimated GFR (Cockcroft-Gault) 111.2 BUN/Creatinine Ratio 26 (6-20) Glucose Level 206 mg/dL (70-99) Lactic Acid Level 1.2 mmol/L (0.4-2.0) Calcium Level 9.7 mg/dL (8.5-10.1) Total Bilirubin 0.7 mg/dL (0.2-1.0) Aspartate Amino Transf (AST/SGOT) 21 U/L (15-37) Alanine Aminotransferase (ALT/SGPT) 25 U/L (16-63) Alkaline Phosphatase 64 U/L (46-116) Creatine Kinase 96 U/L (39-308) Total Protein 7.0 g/dL (6.4-8.2) Albumin 3.8 g/dL (3.4-5.0) Albumin/Globulin Ratio 1.2 (1.0-1.7) Glucose (Fingerstick) 222 mg/dL (70-99) 165 mg/dL (70-99) Laboratory Tests Test 09/02/18 20:43 09/03/18 07:47 Glucose (Fingerstick) 222 mg/dL (70-99) 165 mg/dL (70-99) Microbiology 09/02/18 Blood Culture - Preliminary, Resulted NO GROWTH AFTER 1 DAY Medications Current Medications Fentanyl Citrate (Fentanyl 2ml Vial) 50 mcg 1X ONCE IV Last administered on 04/12at 10:10; Start 09/02/18 at 09:45; Stop 09/02/18 at 09:48; Status DC Ondansetron HCl (Zofran) 4 mg 1X ONCE IV ; Start 09/02/18 at 10:15; Stop at 10:16; Status DC Lorazepam (Ativan) 1 mg 1X ONCE IV Last administered on 09/02/18at 11:17; Start 09/02/18 at 11:00; Stop 09/02/18 at 11:01; Status DC Morphine Sulfate (Morphine Sulfate) 4 mg 1X ONCE IV ; Start 09/02/18 at 11:30; Stop 09/02/18 at 11:31; Status DC Alprazolam (Xanax) 0.25 mg PRN Q8HRS PRN PO ANXIETY / AGITATION; Start at 12:45 Cyclobenzaprine HCl (Flexeril) 10 mg TID PO Last administered on 09/03/18at 08: 53; Start 09/02/18 at 14:00 Morphine Sulfate (Morphine Sulfate) 2 mg PRN Q2HR PRN IV PAIN Last administered on 09/03/18at 08:53; Start 09/02/18 at 12:45 Hydralazine HCl (Apresoline Inj) 10 mg PRN Q4HRS PRN IVP ELEVATED BP, SEE COMMENTS; Start 09/02/18 at 12:45 Oxycodone/ Acetaminophen (Percocet 5/325) 1 tab PRN Q4HRS PRN PO PAIN Last administered on 09/02/18at 14:27; Start 09/02/18 at 12:45 Atorvastatin Calcium (Lipitor) 40 mg HS PO Last administered on 09/02/18at 22:12 ; Start 09/02/18 at 21:00 Gemfibrozil (Lopid) 600 mg BID PO Last administered on 09/03/18at 08:53; Start 09/02/18 at 21:00 Lisinopril (Prinivil) 40 mg DAILY PO ; Start 09/03/18 at 09:00; Stop 09/03/18 at 09:00; Status DC Tamsulosin HCl (Flomax) 0.4 mg HS PO Last administered on 09/02/18at 22:12; Start 09/02/18 at 21:00 Atenolol (Tenormin) 25 mg HS PO Last administered on 09/02/18at 22:13; Start 04/12 at 21:00 Glimepiride (Amaryl) 4 mg DAILY PO ; Start 09/03/18 at 09:00; Stop 09/03/18 at 09:00; Status DC Nifedipine (Procardia Xl) 60 mg DAILY PO ; Start 09/03/18 at 09:00; Stop at 09:00; Status DC Lisinopril (Prinivil) 40 mg DAILY PO Last administered on 09/03/18at 08:55; Start 09/02/18 at 14:15 Nifedipine (Procardia Xl) 60 mg DAILY PO Last administered on 09/02/18at 14:28; Start 09/02/18 at 14:15; Stop 09/02/18 at 14:35; Status DC Glimepiride (Amaryl) 4 mg DAILY PO Last administered on 09/03/18at 08:54; Start 09/02/18 at 14:45 Nifedipine (Procardia Xl) 60 mg DAILY PO Last administered on 09/02/18at 22:13; Start 09/02/18 at 21:00 Methylprednisolone Acetate (DEPO-Medrol 40MG VIAL) 40 mg 1X ONCE IM ; Start 04/12 at 15:00; Stop 09/02/18 at 15:01; Status DC Methylprednisolone Acetate (DEPO-Medrol 40MG VIAL) 40 mg 1X ONCE IM ; Start 04/12 at 15:00; Stop 09/02/18 at 15:01; Status DC Bupivacaine HCl (Sensorcaine-Mpf 0.25%) 10 ml 1X ONCE IJ ; Start 09/02/18 at 15 :00; Stop 09/02/18 at 15:01; Status DC Aspirin (Sharon Aspirin) 650 mg PRN Q6HRS PRN PO PAIN Last administered on at 22:24; Start 09/02/18 at 15:00 Methylprednisolone (Medrol) 8 mg BID PO ; Start 09/03/18 at 09:00; Stop at 21:01 Methylprednisolone (Medrol) 4 mg BIDPCLD PO ; Start 09/03/18 at 12:30; Stop 05/12 at 17:31 Methylprednisolone (Medrol) 4 mg TIDPC PO ; Start 09/04/18 at 08:30; Stop at 17:31 Methylprednisolone (Medrol) 8 mg QHS PO ; Start 09/04/18 at 21:00; Stop at 21:01 Methylprednisolone (Medrol) 4 mg QIDAFTMEAL PO ; Start 09/05/18 at 09:00; Stop 09/05/18 at 21:01 Methylprednisolone (Medrol) 4 mg TID PO ; Start 09/06/18 at 09:00; Stop at 21:01 Methylprednisolone (Medrol) 4 mg BID PO ; Start 09/07/18 at 09:00; Stop at 21:01 Methylprednisolone (Medrol) 4 mg DAILY PO ; Start 09/08/18 at 09:00; Stop at 09:01 Pantoprazole Sodium (Protonix) 40 mg DAILYAC PO ; Start 09/03/18 at 10:30 Active Scripts Active Reported Nifedipine Er (Nifedipine) 60 Mg Tablet.er 1 Tab PO DAILY Flomax (Tamsulosin Hcl) 0.4 Mg Cap.er.24h 1 Cap PO HS Atorvastatin Calcium 40 Mg Tablet 1 Tab PO HS Atenolol 25 Mg Tablet 1 Tab PO HS Gemfibrozil 600 Mg Tablet 600 Mg PO BID Glimepiride 4 Mg Tablet 1 Tab PO DAILY Lisinopril 40 Mg Tablet 1 Tab PO DAILY Vitals/I & O Vital Sign - Last 24 Hours 09/02/18 09/02/18 09/02/18 09/02/18 10:40 10:42 11:04 11:44 Pulse 74 64 60 Resp 17 24 19 B/P (MAP) 186/84 (118) 191/80 (117) 180/82 (114) Pulse Ox 95 97 97 95 O2 Delivery Room Air Room Air Room Air Room Air 09/02/18 09/02/18 09/02/18 09/02/18 12:47 14:27 14:28 14:28 Pulse 68 71 71 Resp 20 B/P (MAP) 178/81 (113) 131/65 131/65 Pulse Ox 98 98 O2 Delivery Room Air 09/02/18 09/02/18 09/02/18 09/02/18 15:00 19:00 20:00 22:13 Temp 98.4 99.7 98.4 99.7 Pulse 71 83 83 Resp 18 18 B/P (MAP) 131/65 (87) 146/73 (97) 146/73 Pulse Ox 94 93 O2 Delivery Room Air Room Air 09/02/18 09/02/18 09/02/18 09/03/18 22:13 23:00 23:20 03:00 Temp 99.4 98.8 99.4 98.8 Pulse 83 69 61 63 Resp 18 18 B/P (MAP) 146/73 171/70 (103) 158/71 (100) 112/61 (78) Pulse Ox 95 95 O2 Delivery Room Air Room Air 09/03/18 09/03/18 09/03/18 09/03/18 07:00 08:53 08:55 09:25 Temp 99.0 99.0 Pulse 60 60 Resp 16 14 14 B/P (MAP) 150/63 (92) 150/63 Pulse Ox 94 94 94 O2 Delivery Room Air Room Air Room Air Intake and Output 09/02/18 09/02/18 09/03/18 15:00 23:00 07:00 Intake Total 120 ml Output Total 2 ml 300 ml Balance 118 ml -300 ml JEANIE ARREDONDO MD Sep 03, 2018 10:24
[2018-09-03 11:00] VITALS: BP 144/60
[2018-09-03] MEDS: PANTOPRAZOLE 40 MG TABLET.DR. PO SCH (11:00)
[2018-09-03] MEDS: methylPREDNISolone 4 MG TABLET. PO SCH ×4 (11:00→20:46)
--- NOTE | 2018-09-03 11:18 | PDOC ---
PROGRESS NOTES Chief Complaint Chief Complaint Intractable neck pain-abnormal CT Spasms DJD spine Multiple foramina narrowing cervical level Grade 1 anterolisthesis cervical area Obesity Throat pain Penicillin allergy History of Present Illness History of Present Illness Neck seems better No more much spasms as per About to have a bladder scan-some bladder issues He does get somewhat confused with morphine and Ativan I provided a copy of the CAT scan and discussed abnormalities FINDINGS: No acute fracture or discitis or lytic process is seen. Grade 1 anterolisthesis of C3-4 and C4-5 and C5-6 is seen related to degenerative facet arthropathy. There is severe degenerative disc space narrowing and moderate degenerative endplate spurring at C6-7 and C7-T1. There is a moderate AP dimensional spinal canal stenosis worse on the left side at C6-7 and a mild spinal canal stenosis at C7-T1. There is moderate narrowing of the right neural foramen at C6-7 and the left neural foramen at C7-T1. There is moderate to severe narrowing of the left neural foramen at C5-6 and severe narrowing of the left neural foramen at C4-5 and on the right side at C3-4 and moderate narrowing of the left neural foramen at C2-3. Patient cannot have an MRI Patient does not want any surgery hence we held off neurosurgical consult-I have discussed with physiatry Was initially planned for trigger injections but felt better after PT OT neck massages Claims to me of raw tongue or throat pain but no odynophagia Plan Swish and swallow Cepastat Bladder scan protocol Continue Flexeril-seems to be working Continue other pain medicines-watch out for too much sedation Follow physiatry recommendations Ice packs Other supportive meds Full code Back to home with hopefully on discharge Vitals Vitals Vital Signs Date Time Temp Pulse Resp B/P (MAP) Pulse Ox O2 Delivery O2 Flow Rate FiO2 09/03/18 09:25 14 94 Room Air 09/03/18 08:55 60 150/63 09/03/18 07:00 99.0 99.0 Physical Exam General: Alert, Oriented X3, Cooperative Abdomen: Normal bowel sounds, Soft, No tenderness, No hepatosplenomegaly, No masses Extremities: No clubbing, No cyanosis, No edema, Normal pulses, No tenderness/ swelling Skin: No rashes, No breakdown, No significant lesion Labs LABS Laboratory Tests Test 09/02/18 20:43 09/03/18 07:47 Glucose (Fingerstick) 222 mg/dL (70-99) 165 mg/dL (70-99) Review of Systems Review of Systems Throat pain, the rest of ROS 14 point negative Assessment and Plan Assessmemt and Plan Problems Medical Problems: (1) Cervical pain Status: Acute (2) Cervical stenosis of spinal canal Status: Acute (3) Hypertensive urgency Status: Acute Comment Review of Relevant I have reviewed the following items rian (where applicable) has been applied. Labs Laboratory Tests Test 09/02/18 10:01 09/02/18 20:43 09/03/18 07:47 White Blood Count 11.3 x10^3/uL (4.0-11.0) Red Blood Count 4.44 x10^6/uL (4.30-5.70) Hemoglobin 13.5 g/dL (13.0-17.5) Hematocrit 39.4 % (39.0-53.0) Mean Corpuscular Volume 89 fL (79-100) Mean Corpuscular Hemoglobin 31 pg (25-35) Mean Corpuscular Hemoglobin Concent 34 g/dL (31-37) Red Cell Distribution Width 13.6 % (11.5-14.5) Platelet Count 260 x10^3/uL (140-400) Neutrophils (%) (Auto) 80 % (31-73) Lymphocytes (%) (Auto) 7 % (24-48) Monocytes (%) (Auto) 12 % (0-9) Eosinophils (%) (Auto) 1 % (0-3) Basophils (%) (Auto) 0 % (0-3) Neutrophils # (Auto) 9.0 x10^3uL (1.8-7.7) Lymphocytes # (Auto) 0.8 x10^3/uL (1.0-4.8) Monocytes # (Auto) 1.4 x10^3/uL (0.0-1.1) Eosinophils # (Auto) 0.1 x10^3/uL (0.0-0.7) Basophils # (Auto) 0.0 x10^3/uL (0.0-0.2) Sodium Level 136 mmol/L (136-145) Potassium Level 4.3 mmol/L (3.5-5.1) Chloride Level 101 mmol/L (98-107) Carbon Dioxide Level 23 mmol/L (21-32) Anion Gap 12 (6-14) Blood Urea Nitrogen 18 mg/dL (8-26) Creatinine 0.7 mg/dL (0.7-1.3) Estimated GFR (Cockcroft-Gault) 111.2 BUN/Creatinine Ratio 26 (6-20) Glucose Level 206 mg/dL (70-99) Lactic Acid Level 1.2 mmol/L (0.4-2.0) Calcium Level 9.7 mg/dL (8.5-10.1) Total Bilirubin 0.7 mg/dL (0.2-1.0) Aspartate Amino Transf (AST/SGOT) 21 U/L (15-37) Alanine Aminotransferase (ALT/SGPT) 25 U/L (16-63) Alkaline Phosphatase 64 U/L (46-116) Creatine Kinase 96 U/L (39-308) Total Protein 7.0 g/dL (6.4-8.2) Albumin 3.8 g/dL (3.4-5.0) Albumin/Globulin Ratio 1.2 (1.0-1.7) Glucose (Fingerstick) 222 mg/dL (70-99) 165 mg/dL (70-99) Laboratory Tests Test 09/02/18 20:43 09/03/18 07:47 Glucose (Fingerstick) 222 mg/dL (70-99) 165 mg/dL (70-99) Microbiology 09/02/18 Blood Culture - Preliminary, Resulted NO GROWTH AFTER 1 DAY Medications Current Medications Fentanyl Citrate (Fentanyl 2ml Vial) 50 mcg 1X ONCE IV Last administered on 04/12at 10:10; Start 09/02/18 at 09:45; Stop 09/02/18 at 09:48; Status DC Ondansetron HCl (Zofran) 4 mg 1X ONCE IV ; Start 09/02/18 at 10:15; Stop at 10:16; Status DC Lorazepam (Ativan) 1 mg 1X ONCE IV Last administered on 09/02/18at 11:17; Start 09/02/18 at 11:00; Stop 09/02/18 at 11:01; Status DC Morphine Sulfate (Morphine Sulfate) 4 mg 1X ONCE IV ; Start 09/02/18 at 11:30; Stop 09/02/18 at 11:31; Status DC Alprazolam (Xanax) 0.25 mg PRN Q8HRS PRN PO ANXIETY / AGITATION; Start at 12:45 Cyclobenzaprine HCl (Flexeril) 10 mg TID PO Last administered on 09/03/18at 08: 53; Start 09/02/18 at 14:00 Morphine Sulfate (Morphine Sulfate) 2 mg PRN Q2HR PRN IV PAIN Last administered on 09/03/18at 08:53; Start 09/02/18 at 12:45 Hydralazine HCl (Apresoline Inj) 10 mg PRN Q4HRS PRN IVP ELEVATED BP, SEE COMMENTS; Start 09/02/18 at 12:45 Oxycodone/ Acetaminophen (Percocet 5/325) 1 tab PRN Q4HRS PRN PO PAIN Last administered on 09/02/18at 14:27; Start 09/02/18 at 12:45 Atorvastatin Calcium (Lipitor) 40 mg HS PO Last administered on 09/02/18at 22:12 ; Start 09/02/18 at 21:00 Gemfibrozil (Lopid) 600 mg BID PO Last administered on 09/03/18at 08:53; Start 09/02/18 at 21:00 Lisinopril (Prinivil) 40 mg DAILY PO ; Start 09/03/18 at 09:00; Stop 09/03/18 at 09:00; Status DC Tamsulosin HCl (Flomax) 0.4 mg HS PO Last administered on 09/02/18at 22:12; Start 09/02/18 at 21:00 Atenolol (Tenormin) 25 mg HS PO Last administered on 09/02/18at 22:13; Start 04/12 at 21:00 Glimepiride (Amaryl) 4 mg DAILY PO ; Start 09/03/18 at 09:00; Stop 09/03/18 at 09:00; Status DC Nifedipine (Procardia Xl) 60 mg DAILY PO ; Start 09/03/18 at 09:00; Stop at 09:00; Status DC Lisinopril (Prinivil) 40 mg DAILY PO Last administered on 09/03/18at 08:55; Start 09/02/18 at 14:15 Nifedipine (Procardia Xl) 60 mg DAILY PO Last administered on 09/02/18at 14:28; Start 09/02/18 at 14:15; Stop 09/02/18 at 14:35; Status DC Glimepiride (Amaryl) 4 mg DAILY PO Last administered on 09/03/18at 08:54; Start 09/02/18 at 14:45 Nifedipine (Procardia Xl) 60 mg DAILY PO Last administered on 09/02/18at 22:13; Start 09/02/18 at 21:00 Methylprednisolone Acetate (DEPO-Medrol 40MG VIAL) 40 mg 1X ONCE IM ; Start 04/12 at 15:00; Stop 09/02/18 at 15:01; Status DC Methylprednisolone Acetate (DEPO-Medrol 40MG VIAL) 40 mg 1X ONCE IM ; Start 04/12 at 15:00; Stop 09/02/18 at 15:01; Status DC Bupivacaine HCl (Sensorcaine-Mpf 0.25%) 10 ml 1X ONCE IJ ; Start 09/02/18 at 15 :00; Stop 09/02/18 at 15:01; Status DC Aspirin (Sharon Aspirin) 650 mg PRN Q6HRS PRN PO PAIN Last administered on at 22:24; Start 09/02/18 at 15:00 Methylprednisolone (Medrol) 8 mg BID PO Last administered on 09/03/18at 11:00; Start 09/03/18 at 09:00; Stop 09/03/18 at 21:01 Methylprednisolone (Medrol) 4 mg BIDPCLD PO ; Start 09/03/18 at 12:30; Stop 05/12 at 17:31 Methylprednisolone (Medrol) 4 mg TIDPC PO ; Start 09/04/18 at 08:30; Stop at 17:31 Methylprednisolone (Medrol) 8 mg QHS PO ; Start 09/04/18 at 21:00; Stop at 21:01 Methylprednisolone (Medrol) 4 mg QIDAFTMEAL PO ; Start 09/05/18 at 09:00; Stop 09/05/18 at 21:01 Methylprednisolone (Medrol) 4 mg TID PO ; Start 09/06/18 at 09:00; Stop at 21:01 Methylprednisolone (Medrol) 4 mg BID PO ; Start 09/07/18 at 09:00; Stop at 21:01 Methylprednisolone (Medrol) 4 mg DAILY PO ; Start 09/08/18 at 09:00; Stop at 09:01 Pantoprazole Sodium (Protonix) 40 mg DAILYAC PO Last administered on 09/03/18at 11:00; Start 09/03/18 at 10:30 Active Scripts Active Reported Nifedipine Er (Nifedipine) 60 Mg Tablet.er 1 Tab PO DAILY Flomax (Tamsulosin Hcl) 0.4 Mg Cap.er.24h 1 Cap PO HS Atorvastatin Calcium 40 Mg Tablet 1 Tab PO HS Atenolol 25 Mg Tablet 1 Tab PO HS Gemfibrozil 600 Mg Tablet 600 Mg PO BID Glimepiride 4 Mg Tablet 1 Tab PO DAILY Lisinopril 40 Mg Tablet 1 Tab PO DAILY Vitals/I & O Vital Sign - Last 24 Hours 09/02/18 09/02/18 09/02/18 09/02/18 11:44 12:47 14:27 14:28 Pulse 60 68 71 Resp 19 20 B/P (MAP) 180/82 (114) 178/81 (113) 131/65 Pulse Ox 95 98 98 O2 Delivery Room Air Room Air 09/02/18 09/02/18 09/02/18 09/02/18 14:28 15:00 19:00 20:00 Temp 98.4 99.7 98.4 99.7 Pulse 71 71 83 Resp 18 18 B/P (MAP) 131/65 131/65 (87) 146/73 (97) Pulse Ox 94 93 O2 Delivery Room Air Room Air 09/02/18 09/02/18 09/02/18 09/02/18 22:13 22:13 23:00 23:20 Temp 99.4 99.4 Pulse 83 83 69 61 Resp 18 B/P (MAP) 146/73 146/73 171/70 (103) 158/71 (100) Pulse Ox 95 O2 Delivery Room Air 09/03/18 09/03/18 09/03/18 09/03/18 03:00 07:00 08:53 08:55 Temp 98.8 99.0 98.8 99.0 Pulse 63 60 60 Resp 18 16 14 B/P (MAP) 112/61 (78) 150/63 (92) 150/63 Pulse Ox 95 94 94 O2 Delivery Room Air Room Air Room Air 09/03/18 09:25 Resp 14 Pulse Ox 94 O2 Delivery Room Air Intake and Output 09/02/18 09/02/18 09/03/18 15:00 23:00 07:00 Intake Total 120 ml Output Total 2 ml 300 ml Balance 118 ml -300 ml JEANINE GARCIA MD Sep 03, 2018 11:18
[2018-09-03] MEDS ORDERED: BENZOCAINE/MENTHOL LOZENGE. PO PRN (11:30)
[2018-09-03] MEDS ORDERED: LIDOCAINE 2% VISCOUS 15 ML SOLUTION. SWSW PRN (11:30)
[2018-09-03 15:00] VITALS: BP 151/63
[2018-09-03] MEDS: ASPIRIN 325 MG TABLET PO PRN (18:59)
[2018-09-03 19:00] VITALS: BP 128/71
[2018-09-03] MEDS: ATORVASTATIN CALCIUM 40 MG TABLET. PO SCH (20:46)
[2018-09-03] MEDS: ATENOLOL 25 MG TABLET. PO SCH (20:46)
[2018-09-03] MEDS: TAMSULOSIN 0.4 MG CAP.ER.24H. PO SCH (20:47)
[2018-09-03 23:00] VITALS: BP 140/54
[2018-09-04 02:50] VITALS: BP 137/55
[2018-09-04 07:00] VITALS: BP 127/55
[2018-09-04] MEDS: PANTOPRAZOLE 40 MG TABLET.DR. PO SCH (07:39)
[2018-09-04] MEDS: GEMFIBROZIL 600 MG TABLET. PO SCH (08:34)
[2018-09-04] MEDS: methylPREDNISolone 4 MG TABLET. PO SCH ×2 (08:34→14:36)
[2018-09-04] MEDS: LISINOPRIL 20 MG TABLET PO SCH (08:35)
[2018-09-04] MEDS: GLIMEPIRIDE 2 MG TABLET. PO SCH (08:35)
[2018-09-04] MEDS: CYCLOBENZAPRINE 10 MG TABLET. PO SCH ×2 (08:35→14:35)
[2018-09-04] MEDS: ASPIRIN 325 MG TABLET PO PRN (08:35)
[2018-09-04] MEDS ORDERED: BENZ1LOZ4 PO (10:45)
[2018-09-04] MEDS ORDERED: OXYC1TAB15 PO (10:45)
[2018-09-04] MEDS ORDERED: Pantoprazole PO (10:45)
[2018-09-04] MEDS ORDERED: LIDO15SO2 SWSW (10:45)
[2018-09-04] MEDS ORDERED: CYCL10TA2 PO (10:45)
[2018-09-04] MEDS ORDERED: METH4TAB PO ×6 (10:45)
[2018-09-04] MEDS ORDERED: ALPR0.254 PO (10:45)
--- NOTE | 2018-09-04 10:48 | PDOC3 ---
Discharge Summary Visit Information Date of Admission: Sep 02, 2018 Date of Discharge: Sep 04, 2018 Admitting Diagnosis Comment: Intractable neck pain-abnormal CT Spasms DJD spine Multiple foramina narrowing cervical level Grade 1 anterolisthesis cervical area Obesity Throat pain Penicillin allergy Final Diagnosis Problems Medical Problems: (1) Cervical pain Status: Acute (2) Cervical stenosis of spinal canal Status: Acute (3) Hypertensive urgency Status: Acute Brief Hospital Course Allergies Allergies Coded Allergies Type Severity Reaction Last Updated Verified Penicillins Allergy Intermediate 09/02/18 Yes adhesive tape Allergy Intermediate 09/03/18 Yes Vital Signs Vital Signs Date Time Temp Pulse Resp B/P (MAP) Pulse Ox O2 Delivery O2 Flow Rate FiO2 09/04/18 09:00 56 127/55 09/04/18 08:00 Room Air 09/04/18 07:00 97.8 18 95 97.8 Lab Results Laboratory Tests Test 09/02/18 20:43 09/03/18 07:47 09/03/18 11:23 09/03/18 16:53 Glucose (Fingerstick) 222 mg/dL (70-99) 165 mg/dL (70-99) 247 mg/dL (70-99) 195 mg/dL (70-99) Test 09/03/18 20:42 09/04/18 07:29 Glucose (Fingerstick) 265 mg/dL (70-99) 177 mg/dL (70-99) Laboratory Tests Test 09/03/18 11:23 09/03/18 16:53 09/03/18 20:42 09/04/18 07:29 Glucose (Fingerstick) 247 mg/dL (70-99) 195 mg/dL (70-99) 265 mg/dL (70-99) 177 mg/dL (70-99) Brief Hospital Course Mr. Sanchez is a 73 old white male who suddenly had acute onset intractable neck pain. Denies any trauma. Denies any neuropathy on cervical area or bilateral hands. Lives with a who is a retired night RN. Imaging shows some neural foramina narrowing. Could not do an MRI because he cannot lay flat. Comanage with physiatry. Patient does not want any surgery so we did not consult neurosurgery. Better with neck exercises Medrol Dosepak pain medicine, Huseyin. Was on baclofen as outpatient but no relief. Now better and agreeable to outpatient physical therapy along with Medrol Dosepak pain medicines Flexeril all on chart Consults performed physiatry Procedures formed OT PT exercises neck exercises Discharge Information Condition at Discharge: Improved, Stable Follow Up: Weeks (OP PT 3x a week) Disposition/Orders: D/C to Home Scheduled Atenolol (Atenolol) 25 Mg Tablet, 1 TAB PO HS for HTN, #30 Ref 5 (Reported) Entered as Reported by: ARYA FISCHER on 09/02/181335 Last Action: Converted on 09/02/181349 by ARYA FISCHER Atorvastatin Calcium (Atorvastatin Calcium) 40 Mg Tablet, 1 TAB PO HS for HLD, # 30 Ref 5 (Reported) Entered as Reported by: ARYA FISCHER on 09/02/181335 Last Action: Continued on 09/02/181349 by ARYA FISCHER Cyclobenzaprine Hcl (Cyclobenzaprine Hcl) 10 Mg Tablet, 10 MG PO TID for neck spasm MDD 1, #30 Prescribed by: JEANINE GARCIA on 09/04/18 1045 Gemfibrozil (Gemfibrozil) 600 Mg Tablet, 600 MG PO BID for HLD, (Reported) Entered as Reported by: ARYA FISCHER on 09/02/181335 Last Action: Continued on 09/02/181349 by ARYA FISCHER Glimepiride (Glimepiride) 4 Mg Tablet, 1 TAB PO DAILY for DM, #30 Ref 5 ( Reported) Entered as Reported by: ARYA FISCHER on 09/02/181335 Last Action: Converted on 09/02/181349 by ARYA FISCHER Lisinopril (Lisinopril) 40 Mg Tablet, 1 TAB PO DAILY for HTN, #30 Ref 5 ( Reported) Entered as Reported by: ARYA FISCHER on 09/02/181333 Last Action: Continued on 09/02/181349 by ARYA FISCHER Methylprednisolone (Medrol) 4 Mg Tablet, 4 MG PO DAILY for spasm MDD 1 for 1 Days, #1 Prescribed by: JEANINE GARCIA on 09/04/18 1045 Methylprednisolone (Medrol) 4 Mg Tablet, 4 MG PO BID for spasm MDD 1 for 1 Days , #2 Prescribed by: JEANINE GARCIA on 09/04/18 1045 Methylprednisolone (Medrol) 4 Mg Tablet, 4 MG PO TID for spasm MDD 1 for 1 Days , #3 Prescribed by: JEANINE GARCIA on 09/04/18 1045 Methylprednisolone (Medrol) 4 Mg Tablet, 4 MG PO QIDAFTMEAL for spasm MDD 1 for 1 Days, #4 Prescribed by: JEANINE GARCIA on 09/04/18 1045 Methylprednisolone (Medrol) 4 Mg Tablet, 8 MG PO QHS for spasm MDD 1 for 1 Days , #2 Prescribed by: JEANINE GARCIA on 09/04/18 1045 Methylprednisolone (Medrol) 4 Mg Tablet, 4 MG PO TIDPC for spasm MDD 1 for 1 Days, #3 Prescribed by: JEANINE GARCIA on 09/04/18 1045 Nifedipine (Nifedipine Er) 60 Mg Tablet.er, 1 TAB PO DAILY for htn, #30 Ref 3 ( Reported) Entered as Reported by: ARYA FISCHER on 09/02/181337 Last Action: Converted on 09/02/181349 by ARYA FISCHER Tamsulosin Hcl (Flomax) 0.4 Mg Cap.er.24h, 1 CAP PO HS for BPH, #30 Ref 11 ( Reported) Entered as Reported by: ARYA FISCHER on 09/02/181335 Last Action: Continued on 09/02/181349 by ARYA FISCHER [Pantoprazole] 40 MG TABLET.DR, 40 MG PO DAILYAC for gerd prophy MDD 1, #30 Prescribed by: JEANINE GARCIA on 09/04/18 1045 Scheduled PRN Alprazolam (Alprazolam) 0.25 Mg Tablet, 0.25 MG PO PRN Q8HRS PRN for ANXIETY / AGITATION MDD 1, #20 Prescribed by: JEANINE GARCIA on 09/04/18 1045 Benzocaine/Menthol (Sore Throat Lozenge) 1 Each Lozenge, 1 MONICA PO PRN Q2HRS PRN for SORE THROAT MDD 1, #30 Prescribed by: JEANINE GARCIA on 09/04/18 1045 Lidocaine HCl (Lidocaine HCl Viscous) 15 Ml Solution, 15 ML SWSW PRN Q4HRS PRN for MOUTH PAIN MDD 1, #1 Prescribed by: JEANINE GARCIA on 09/04/18 1045 Oxycodone/Apap 5-325 (Percocet 5-325 Mg Tablet ) 1 Each Tablet, 1 TAB PO PRN Q4HRS PRN for PAIN MDD 1, #30 Prescribed by: JEANINE GARCIA on 09/04/18 1045 JEANINE GARCIA MD Sep 04, 2018 10:48
[2018-09-04 11:00] VITALS: BP 136/58
--- NOTE | 2018-09-04 11:01 | PDOC ---
PROGRESS NOTES Subjective Subjective He feels better. Objective Objective Vital Signs Date Time Temp Pulse Resp B/P (MAP) Pulse Ox O2 Delivery O2 Flow Rate FiO2 09/04/18 09:00 56 127/55 09/04/18 08:00 Room Air 09/04/18 07:00 97.8 18 95 97.8 Intake and Output 09/04/18 07:00 Intake Total 460 ml Balance 460 ml Intake Oral 460 ml # Voids 1 Physical Exam Physical Exam He is sitting at edge of bed and still had painfully limited cervical spine ROM with tenderness to palpation over cervical paraspinal muscles and still keeps his neck in bent forward position. Assessment Assessment Problems Medical Problems: (1) Cervical pain Status: Acute (2) Cervical stenosis of spinal canal Status: Acute (3) Hypertensive urgency Status: Acute Plan Plan of Care To let him go home after physical therapy and arrange for out patient physical therapy follow up. Comment Review of Relevant I have reviewed the following items rian (where applicable) has been applied. Labs Laboratory Tests Test 09/02/18 20:43 09/03/18 07:47 09/03/18 11:23 09/03/18 16:53 Glucose (Fingerstick) 222 mg/dL (70-99) 165 mg/dL (70-99) 247 mg/dL (70-99) 195 mg/dL (70-99) Test 09/03/18 20:42 09/04/18 07:29 Glucose (Fingerstick) 265 mg/dL (70-99) 177 mg/dL (70-99) Laboratory Tests Test 09/03/18 11:23 09/03/18 16:53 09/03/18 20:42 09/04/18 07:29 Glucose (Fingerstick) 247 mg/dL (70-99) 195 mg/dL (70-99) 265 mg/dL (70-99) 177 mg/dL (70-99) Microbiology 09/02/18 Blood Culture - Preliminary, Resulted NO GROWTH AFTER 2 DAYS Medications Current Medications Fentanyl Citrate (Fentanyl 2ml Vial) 50 mcg 1X ONCE IV Last administered on 04/12at 10:10; Start 09/02/18 at 09:45; Stop 09/02/18 at 09:48; Status DC Ondansetron HCl (Zofran) 4 mg 1X ONCE IV ; Start 09/02/18 at 10:15; Stop at 10:16; Status DC Lorazepam (Ativan) 1 mg 1X ONCE IV Last administered on 09/02/18at 11:17; Start 09/02/18 at 11:00; Stop 09/02/18 at 11:01; Status DC Morphine Sulfate (Morphine Sulfate) 4 mg 1X ONCE IV ; Start 09/02/18 at 11:30; Stop 09/02/18 at 11:31; Status DC Alprazolam (Xanax) 0.25 mg PRN Q8HRS PRN PO ANXIETY / AGITATION; Start at 12:45 Cyclobenzaprine HCl (Flexeril) 10 mg TID PO Last administered on 09/04/18at 08: 35; Start 09/02/18 at 14:00 Morphine Sulfate (Morphine Sulfate) 2 mg PRN Q2HR PRN IV PAIN Last administered on 09/03/18at 08:53; Start 09/02/18 at 12:45 Hydralazine HCl (Apresoline Inj) 10 mg PRN Q4HRS PRN IVP ELEVATED BP, SEE COMMENTS; Start 09/02/18 at 12:45 Oxycodone/ Acetaminophen (Percocet 5/325) 1 tab PRN Q4HRS PRN PO PAIN Last administered on 09/02/18at 14:27; Start 09/02/18 at 12:45 Atorvastatin Calcium (Lipitor) 40 mg HS PO Last administered on 09/03/18at 20:46 ; Start 09/02/18 at 21:00 Gemfibrozil (Lopid) 600 mg BID PO Last administered on 09/04/18at 08:34; Start 09/02/18 at 21:00 Lisinopril (Prinivil) 40 mg DAILY PO ; Start 09/03/18 at 09:00; Stop 09/03/18 at 09:00; Status DC Tamsulosin HCl (Flomax) 0.4 mg HS PO Last administered on 09/03/18at 20:47; Start 09/02/18 at 21:00 Atenolol (Tenormin) 25 mg HS PO Last administered on 09/03/18at 20:46; Start 04/12 at 21:00 Glimepiride (Amaryl) 4 mg DAILY PO ; Start 09/03/18 at 09:00; Stop 09/03/18 at 09:00; Status DC Nifedipine (Procardia Xl) 60 mg DAILY PO ; Start 09/03/18 at 09:00; Stop at 09:00; Status DC Lisinopril (Prinivil) 40 mg DAILY PO Last administered on 09/04/18 08:35; Start 09/02/18 at 14:15 Nifedipine (Procardia Xl) 60 mg DAILY PO Last administered on 09/02/18 14:28; Start 09/02/18 at 14:15; Stop 09/02/18 at 14:35; Status DC Glimepiride (Amaryl) 4 mg DAILY PO Last administered on 09/04/18 08:35; Start 09/02/18 at 14:45 Nifedipine (Procardia Xl) 60 mg DAILY PO Last administered on 09/02/18 22:13; Start 09/02/18 at 21:00; Stop 09/04/18 at 09:21; Status DC Methylprednisolone Acetate (DEPO-Medrol 40MG VIAL) 40 mg 1X ONCE IM Last administered on 09/02/18 15:00; Start 09/02/18 at 15:00; Stop 09/02/18 at 15:01 ; Status DC Methylprednisolone Acetate (DEPO-Medrol 40MG VIAL) 40 mg 1X ONCE IM Last administered on 09/02/18 15:00; Start 09/02/18 at 15:00; Stop 09/02/18 at 15:01 ; Status DC Bupivacaine HCl (Sensorcaine-Mpf 0.25%) 10 ml 1X ONCE IJ Last administered on 09/02/18 15:00; Start 09/02/18 at 15:00; Stop 09/02/18 at 15:01; Status DC Aspirin (Sharon Aspirin) 650 mg PRN Q6HRS PRN PO PAIN Last administered on 08:35; Start 09/02/18 at 15:00 Methylprednisolone (Medrol) 8 mg BID PO Last administered on 09/03/18 20:46; Start 09/03/18 at 09:00; Stop 09/03/18 at 21:01; Status DC Methylprednisolone (Medrol) 4 mg BIDPCLD PO Last administered on 09/03/18 18: 59; Start 09/03/18 at 12:30; Stop 09/03/18 at 17:31; Status DC Methylprednisolone (Medrol) 4 mg TIDPC PO Last administered on 09/04/18at 08:34 ; Start 09/04/18 at 08:30; Stop 09/04/18 at 17:31 Methylprednisolone (Medrol) 8 mg QHS PO ; Start 09/04/18 at 21:00; Stop at 21:01 Methylprednisolone (Medrol) 4 mg QIDAFTMEAL PO ; Start 09/05/18 at 09:00; Stop 09/05/18 at 21:01 Methylprednisolone (Medrol) 4 mg TID PO ; Start 09/06/18 at 09:00; Stop at 21:01 Methylprednisolone (Medrol) 4 mg BID PO ; Start 09/07/18 at 09:00; Stop at 21:01 Methylprednisolone (Medrol) 4 mg DAILY PO ; Start 09/08/18 at 09:00; Stop at 09:01 Pantoprazole Sodium (Protonix) 40 mg DAILYAC PO Last administered on 09/04/18at 07:39; Start 09/03/18 at 10:30 Throat Lozenges (Cepacol Sore Throat Lozenge) 1 debbi PRN Q2HRS PRN PO SORE THROAT; Start 09/03/18 at 11:30 Lidocaine HCl (Viscous Lidocaine) 15 ml PRN Q4HRS PRN SWSW MOUTH PAIN; Start at 11:30 Nifedipine (Procardia Xl) 60 mg HS PO ; Start 09/04/18 at 21:00 Active Scripts Active Medrol (Methylprednisolone) 4 Mg Tablet 4 Mg PO TIDPC MDD 1 1 Days Medrol (Methylprednisolone) 4 Mg Tablet 8 Mg PO QHS MDD 1 1 Days Medrol (Methylprednisolone) 4 Mg Tablet 4 Mg PO QIDAFTMEAL MDD 1 1 Days Medrol (Methylprednisolone) 4 Mg Tablet 4 Mg PO TID MDD 1 1 Days Medrol (Methylprednisolone) 4 Mg Tablet 4 Mg PO BID MDD 1 1 Days Medrol (Methylprednisolone) 4 Mg Tablet 4 Mg PO DAILY MDD 1 1 Days Lidocaine HCl Viscous (Lidocaine HCl) 15 Ml Solution 15 Ml SWSW PRN Q4HRS PRN MDD 1 Sore Throat Lozenge (Benzocaine/Menthol) 1 Each Lozenge 1 Debbi PO PRN Q2HRS PRN MDD 1 [Pantoprazole] 40 MG Tablet.dr 40 Mg PO DAILYAC MDD 1 Alprazolam 0.25 Mg Tablet 0.25 Mg PO PRN Q8HRS PRN MDD 1 Percocet 5-325 Mg Tablet (Oxycodone/Acetaminophen) 1 Each Tablet 1 Tab PO PRN Q4HRS PRN MDD 1 Cyclobenzaprine Hcl 10 Mg Tablet 10 Mg PO TID MDD 1 Reported Nifedipine Er (Nifedipine) 60 Mg Tablet.er 1 Tab PO DAILY Flomax (Tamsulosin Hcl) 0.4 Mg Cap.er.24h 1 Cap PO HS Atorvastatin Calcium 40 Mg Tablet 1 Tab PO HS Atenolol 25 Mg Tablet 1 Tab PO HS Gemfibrozil 600 Mg Tablet 600 Mg PO BID Glimepiride 4 Mg Tablet 1 Tab PO DAILY Lisinopril 40 Mg Tablet 1 Tab PO DAILY Vitals/I & O Vital Sign - Last 24 Hours 09/03/18 09/03/18 09/03/18 09/03/18 11:00 15:00 19:00 20:10 Temp 97.9 100.1 98.8 97.9 100.1 98.8 Pulse 67 70 77 Resp 14 14 18 B/P (MAP) 144/60 (88) 151/63 (92) 128/71 (90) Pulse Ox 95 95 95 O2 Delivery Room Air Room Air Room Air Room Air 09/03/18 09/03/18 09/04/18 09/04/18 20:46 23:00 02:50 07:00 Temp 98.7 97.7 97.8 98.7 97.7 97.8 Pulse 77 58 51 56 Resp 18 18 18 B/P (MAP) 128/71 140/54 (82) 137/55 (82) 127/55 (79) Pulse Ox 95 95 95 O2 Delivery Room Air Room Air Room Air 09/04/18 09/04/18 09/04/18 08:00 08:35 09:00 Pulse 56 56 B/P (MAP) 127/55 127/55 O2 Delivery Room Air Intake and Output 09/03/18 09/03/18 09/04/18 15:00 23:00 07:00 Intake Total 240 ml 100 ml 120 ml Balance 240 ml 100 ml 120 ml JEANIE ARREDONDO MD Sep 04, 2018:01
--- NOTE | 2018-09-04 16:27 | NUR ---
Discharge Note: YONY SCHREIBER Discharge instructions and discharge home medications reviewed with Patient and a copy given. All questions have been answered and understanding verbalized. The following instructions and handouts were given: Prescriptions, Discharge Instructions, Follow up Instructions Discontinued lines and drains: Peripheral IV, Catheter intact. Patient discharged to Home with Self-Care via Private Vehicle
[2018-09-04] MEDS ORDERED: methylPREDNISolone 4 MG TABLET. PO SCH (21:00)
[2018-09-05] MEDS ORDERED: methylPREDNISolone 4 MG TABLET. PO SCH (09:00)
[2018-09-06] MEDS ORDERED: methylPREDNISolone 4 MG TABLET. PO SCH (09:00)
[2018-09-07] MEDS ORDERED: methylPREDNISolone 4 MG TABLET. PO SCH (09:00)
[2018-09-08] MEDS ORDERED: methylPREDNISolone 4 MG TABLET. PO SCH (09:00)
== END 2018-09-04 14:45 | disposition home or self-care (01) | DRG 551 ==
LOC: ER 09:07 → 5 NORTH 11:22
PROVIDERS: ADMIT Internal Medicine; ATTEND Internal Medicine
DX: M48.02 Spinal stenosis, cervical region (principal); G93.41 Metabolic encephalopathy; I16.0 Hypertensive urgency; I10 Essential (primary) hypertension; E78.00 Pure hypercholesterolemia, unspecified; E11.42 Type 2 diabetes mellitus with diabetic polyneuropathy; Z96.641 Presence of right artificial hip joint; G89.29 Other chronic pain; M43.12 Spondylolisthesis, cervical region; M47.22 Other spondylosis with radiculopathy, cervical region; E66.9 Obesity, unspecified; Z82.49 Family history of ischemic heart disease and other diseases of the circulatory system; Z83.49 Family history of other endocrine, nutritional and metabolic diseases; Z88.0 Allergy status to penicillin; Z90.49 Acquired absence of other specified parts of digestive tract; Z95.1 Presence of aortocoronary bypass graft; Z68.33 Body mass index [BMI] 33.0-33.9, adult; Z98.42 Cataract extraction status, left eye
CPT/HCPCS: 36415; 70450; 72125; 80053; 82550; 82962; 83605; 85025; 87040; 96374; 96375; J1030; J2060; J2270; J3010; J3490; J7509; 97035; 97530; 99285-25

== ENCOUNTER → 2019-02-25 | Outpatient (CLI) | payer MEDICARE, OTHER ==
[~2019-02-25] MED LIST changes: +ASPI325T8 PO; +DIAZ5TAB4 PO; +GLIM4TAB PO; -GLIM4TAB2 PO; +GLIM4TAB4 PO; +MELO15TA23 PO; +MULT-246 PO; +NITR0.4T22 SL; -REGADENOSON 0.4 MG/5 ML DISP.SYRIN. IV ONE; +TRIA15CR2 TP
--- NOTE | 2019-02-25 11:31 | PAIN ---
DATE OF SERVICE: 02/25/2019 INITIAL CONSULTATION FOR PAIN CLINIC CHIEF COMPLAINT: Neck and bilateral upper extremity pain. HISTORY OF PRESENT ILLNESS: This is a 73-year-old male who presents with history of pain in the base of the neck and shoulders for many years, originally from duty in 1970. The patient reports over the past 3 years, it became much more noticeable and worse with pain radiating in the base of the neck and shoulders, worse on the right than the left, present bilaterally with numbness and tingling into the forearms as well as the hands, biceps, triceps, anterior and posterior aspect of the arm and shoulder bilaterally as well. It is worse with weightbearing, worse with range of motion, lifting items over his head or reaching upward. The patient reports it awakens him from sleep at night occasionally, but not every night, does not affect his bowel or bladder control, but does affect his ability to walk. He feels he is bracing himself with his neck and shoulders. The patient has had physical therapy in the past as well as doing exercise currently. Questionable if these have helped significantly. The patient reports no immediate help with the pain. The patient describes the pain as aching, dull, sharp, shooting and tingling in the hands bilaterally, again worse on the right than the left. No obvious motor loss, but significant fatigability of the upper extremities, especially on the right side and the patient is right handed. The patient did have a CT scan of the cervical spine showing degenerative cervical spondylosis, most marked at C6-C7 and C7-T1 with moderate narrowing of the right neural foramen at C6-C7 and left neural foramen at C7-T1, [id number] narrowing at left neural foramen at C5-C6 and severe narrowing of the left neural foramen at C4-C5 and on the right side at C3-C4. The patient's disability rating from 0-10, 10 being the worst, is a 6 with family and home responsibilities, recreation, social activity, self-care, 5 with life-support activities. 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 OTHER SURGERIES: Include a right hip fracture with replacement, coronary artery bypass grafting, left eye enucleation and vasectomy and appendectomy. CURRENT MEDICATIONS: Include Percocet, cyclobenzaprine, pantoprazole, meloxicam, aspirin, Amaryl, nitroglycerin, triamcinolone, diazepam, multivitamin, nifedipine, Flomax, atenolol, atorvastatin, lisinopril, gemfibrozil. ALLERGIES: THE PATIENT IS ALLERGIC TO PENICILLIN AND SURGICAL TAPE. FAMILY HISTORY: Significant for heart disease and lymphadenopathy. SOCIAL HISTORY: The patient does not drink alcohol, does not smoke, does not use any illegal, illicit or recreational drugs. He is , lives with his spouse, lives locally in [place], [place]. REVIEW OF SYSTEMS: The patient's review of systems is positive for those items mentioned in history of present illness. All systems reviewed and otherwise negative. It is complete, full and well documented on the patient's chart. PHYSICAL EXAMINATION: VITAL SIGNS: The patient's blood pressure is 155/77, pulse 65, respirations 18, temperature 98.4 degrees Fahrenheit, height is 5 feet 11 inches, weight is 227 pounds. GENERAL: The patient is awake, alert, oriented, appropriate, very pleasant demeanor. HEENT: Head shows normocephalic, atraumatic. Extraocular movements are intact and symmetrical. Oral cavity: Mucous membranes moist and pink. Dentition is intact. NECK: Shows anterior throat supple without palpable lymphadenopathy noted. Swallow reflex symmetrical. CHEST: Shows normal on inspection. Breath sounds clear to auscultation bilaterally. HEART: Shows S1, S2 clear. No murmurs auscultated. ABDOMEN: Soft, nontender, nondistended. No palpable organomegaly is noted. No rebound or guarding demonstrated. BACK: Shows spine grossly in the midline. Slight exaggeration of thoracic kyphosis and minor flattening of cervical lordotic curvature and flattening of lumbar lordotic curvature. Cervical paraspinous muscle shows symmetrical on inspection, on palpation shows some moderate tenderness diffusely bilaterally going diffusely without significant radiation. The patient has good rotational motion of cervical spine, both laterally greater than 45 degrees closer to 90 degrees as well as full extension, full forward flexion without significant increase in pain. EXTREMITIES: The patient's upper extremities show deep tendon reflexes at 2+ in the biceps, triceps tendons. 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 Peripheral pulses are 2+ radial distribution. No peripheral edema is noted bilaterally. Shoulder shrug is strong and intact without loss of strength on resistance as is shoulder shrug without loss of strength. There was fairly significant pain noted in the right shoulder compared to the left, is true with abduction of shoulder to 90 degrees without loss of strength on resistance, but with fairly significant pain noted in the right base of the neck and shoulder with resistance. SKIN: Shows warm and dry, good turgor. No edema. No rashes or bruising. The patient does have some sores on the anterior shins bilaterally that are healed. IMPRESSION: 1. This is a 73-year-old male with a long history of neck and bilateral upper extremity pain, worse over the past 3 years or so, right greater than left in radicular fashion. 2. CT scan of cervical spine as noted. 3. Diabetes. 4. Shortness of breath. 5. Hypertension. 6. Arthritis. PLAN: Options were discussed with the patient and the patient's spouse who accompanied him this visit today including conservative medical managements, physical therapies and interventional techniques. He would like to follow most conservative course. We discussed a cervical traction regimen as well as try Medrol Dosepak. The patient was cautioned as to his blood sugar levels while taking this, but would like to take this nonetheless. The patient was given instruction as well as side effects to be aware of with the medication. Once this is completed, we will order physical therapy. The patient would like to proceed with that. He would like to try the Medrol Wan first. We did discuss a cervical traction, Physical Therapy Department and they are interested in pursuing this as well. We did discuss potential interventional techniques and we will see if the more conservative measures are helpful first and may proceed with that in the future as well. PILY FOSTER MD DR: MICHEL/ben JOB#: [id number] / [id number]
== END | disposition home or self-care (01) ==
LOC: PNCL 09:00
PROVIDERS: ATTEND Anesthesiology
DX: M54.2 Cervicalgia (principal); M79.602 Pain in left arm; M79.601 Pain in right arm; E11.9 Type 2 diabetes mellitus without complications; I10 Essential (primary) hypertension; M19.90 Unspecified osteoarthritis, unspecified site; R06.02 Shortness of breath
CPT/HCPCS: G0463

== ENCOUNTER 2020-07-03 10:50 | Inpatient (IN) | payer MEDICARE, OTHER ==
[~2020-07-03] VITALS: Ht 177.8 cm; Wt 96.1 kg
[~2020-07-03 10:50] MED LIST changes: +GEMF600T20 PO; -GEMF600T8 PO; -GLIM4TAB4 PO; +GLIM4TAB8 PO; -LIDO15SO2 SWSW; +LIDO20SO10 SWSW
[2020-07-03] MEDS ORDERED: DEXTROSE 50% 25 GM / 50ML DISP.SYRIN. IV ONE ×4 (11:45→18:30)
--- NOTE | 2020-07-03 11:50 | ED.ADGEN ---
Past Medical History Past Medical History: CAD, Cancer, Diabetes-Type II, High Cholesterol, Hypertension, Other Additional Past Medical Histor: L EYE CA Past Surgical History: Appendectomy, Cholecystectomy, Coronary Bypass Surgery (cabg x5), Hip Replacement, Other Additional Past Surgical Histo: ORIF L LEG, L EYE removed Smoking Status: Former Smoker Alcohol Use: None Drug Use: None General Adult EDM: Chief Complaint: SHORTNESS OF BREATH HPI: HPI: Patient is a 75 year old male brought to the ER via EMS with altered LOC. Per pt's on the phone pt was diagnosed with COVID19 on 06/25/20. He has been having intermittent episodes of confusion for the last 3 days. She states he has had a decreased appetite and has not been eating normally. Their glucometer at home is broken so she has been unable to check is blood glucose. She reports that usually she can get him to eat and then the confusion resolves. He wouldn't eat this morning and has not taken any of his medications. reports that he was kicking and throwing things in tbe bedroom and could not be redirected so she called the ambulance. He has had intermittent fevers. He has denied any shortness of breath until today when he told her that he has felt short of breath all week. She denies any vomiting or diarrhea. She states he has had a cough. Pt is alert and oriented to person only at this time, therefore HPI is limited. Review of Systems: Review of Systems: Complete ROS is negative unless otherwise noted in HPI. Current Medications: Current Medications Medications (Trade) Dose Ordered Sig/Fili Start Time Stop Time Status Last Admin Dose Admin Dextrose (Dextrose 50%-Water Syringe) 25 gm 1X ONCE 07/03/20 13:15 07/03/20 13:19 DC 07/03/20 13:16 25 GM Info (CONTRAST GIVEN -- Rx MONITORING) 1 each PRN DAILY PRN 07/03/20 12:15 07/05/20 12:14 Iohexol (Omnipaque 350 Mg/ml) 100 ml 1X ONCE 07/03/20 12:15 07/03/20 12:16 DC 07/03/20 12:15 100 ML Lorazepam (Ativan Inj) 1 mg 1X ONCE 07/03/20 11:30 07/03/20 11:31 DC 07/03/20 11:40 1 MG Allergies: Allergies: Allergies Coded Allergies Type Severity Reaction Last Updated Verified Penicillins Allergy Intermediate 09/02/18 Yes adhesive tape Allergy Intermediate 09/03/18 Yes Physical Exam: PE: See Above Constitutional: Well developed, well nourished, moderate distress, non-toxic appearance. [] HENT: Normocephalic, atraumatic, bilateral external ears normal, nose normal. [] Eyes: Surgical removal of left eye present, right eye: Pupil is round and reactive to light, EOM intact, conjunctiva normal, no discharge. [] Neck: Normal range of motion, no stridor. [] Cardiovascular:Heart rate regular rhythm Lungs & Thorax: Respirations even and unlabored, no retractions, no respiratory distress Abdomen: soft, no tenderness, no masses Extremities: No cyanosis, no clubbing, ROM intact, no edema. [] Neurologic: Alert and oriented X 1, no focal deficits noted. [] Psychologic: Affect confused, judgement impaired, mood anxious Current Patient Data: Labs: Laboratory Tests Test 07/03/20 11:35 07/03/20 11:53 07/03/20 11:59 07/03/20 13:10 White Blood Count 8.9 x10^3/uL (4.0-11.0) Red Blood Count 4.28 x10^6/uL (4.30-5.70) L Hemoglobin 13.2 g/dL (13.0-17.5) Hematocrit 36.7 % (39.0-53.0) L Mean Corpuscular Volume 86 fL (79-100) Mean Corpuscular Hemoglobin 31 pg (25-35) Mean Corpuscular Hemoglobin Concent 36 g/dL (31-37) Red Cell Distribution Width 12.9 % (11.5-14.5) Platelet Count 242 x10^3/uL (140-400) Neutrophils (%) (Auto) 83 % (31-73) H Lymphocytes (%) (Auto) 4 % (24-48) L Monocytes (%) (Auto) 13 % (0-9) H Eosinophils (%) (Auto) 0 % (0-3) Basophils (%) (Auto) 0 % (0-3) Neutrophils # (Auto) 7.4 x10^3/uL (1.8-7.7) Lymphocytes # (Auto) 0.4 x10^3/uL (1.0-4.8) L Monocytes # (Auto) 1.1 x10^3/uL (0.0-1.1) Eosinophils # (Auto) 0.0 x10^3/uL (0.0-0.7) Basophils # (Auto) 0.0 x10^3/uL (0.0-0.2) Sodium Level 129 mmol/L (136-145) L Potassium Level 3.7 mmol/L (3.5-5.1) Chloride Level 96 mmol/L (98-107) L Carbon Dioxide Level 23 mmol/L (21-32) Anion Gap 10 (6-14) Blood Urea Nitrogen 24 mg/dL (8-26) Creatinine 0.9 mg/dL (0.7-1.3) Estimated GFR (Cockcroft-Gault) 82.7 BUN/Creatinine Ratio 27 (6-20) H Glucose Level 20 mg/dL (70-99) *L Lactic Acid Level 0.8 mmol/L (0.4-2.0) Calcium Level 9.1 mg/dL (8.5-10.1) Magnesium Level 2.1 mg/dL (1.8-2.4) Total Bilirubin 0.6 mg/dL (0.2-1.0) Aspartate Amino Transferase (AST) 106 U/L (15-37) H Alanine Aminotransferase (ALT) 85 U/L (16-63) H Alkaline Phosphatase 60 U/L (46-116) Creatine Kinase 294 U/L (39-308) Creatine Kinase MB (Mass) 5.5 ng/mL (0.0-3.6) H Creatine Kinase MB Relative Index 1.9 % (0-4) Troponin I Quantitative 1.447 ng/mL (0.000-0.055) PY-Goe-C-Type Natriuretic Peptide 2870 pg/mL (0-124) H Total Protein 6.1 g/dL (6.4-8.2) L Albumin 2.9 g/dL (3.4-5.0) L Albumin/Globulin Ratio 0.9 (1.0-1.7) L Lipase 328 U/L (73-393) Urine Collection Type Unknown Urine Color [place] Urine Clarity Clear Urine pH 6.0 (<5.0-8.0) Urine Specific [place] >=1.030 (1.000-1.030) Urine Protein >=300 mg/dL (NEG-TRACE) Urine Glucose (UA) Negative mg/dL (NEG) Urine Ketones (Stick) Trace mg/dL (NEG) Urine Blood Small (NEG) Urine Nitrite Negative (NEG) Urine Bilirubin Negative (NEG) Urine Urobilinogen Dipstick 2.0 mg/dL (0.2 mg/dL) Urine Leukocyte Esterase Negative (NEG) Urine RBC 0 /HPF (0-2) Urine WBC 1-4 /HPF (0-4) Urine Squamous Epithelial Cells Few /LPF Urine Bacteria Few /HPF (0-FEW) Urine Mucus Slight /LPF Glucose (Fingerstick) 115 mg/dL (70-99) H 20 mg/dL (70-99) *L Laboratory Tests 07/03/20 11:35 Laboratory Tests 07/03/20 11:35 EKG: EK-SR rate 96 non specific changes, no STEMI read by Dr. Krishnamurthy 1305- SR rate 85, non specific changes, no STEMI read by DR. Krishnamurthy[] Heart Score: Risk Factors: Risk Factors: DM, Current or recent (<one month) smoker, HTN, HLP, family history of CAD, obesity. Risk Scores: Score 0 - 3: 2.5% MACE over next 6 weeks - Discharge Home Score 4 - 6: 20.3% MACE over next 6 weeks - Admit for Clinical Observation Score 7 - 10: 72.7% MACE over next 6 weeks - Early Invasive Strategies Radiology/Procedures: Radiology/Procedures: PROCEDURE: CT HEAD WO CONTRAST CT HEAD INDICATION: Confusion COMPARISON: 09/02/2018. Exposure: One or more of the following individualized dose reduction techniques were utilized for this examination: 1. Automated exposure control 2. Adjustment of the mA and/or kV according to patient size 3. Use of iterative reconstruction technique TECHNIQUE: 5 mm contiguous axial images were obtained from the skull base to the vertex in both bone and soft tissue algorithm. FINDINGS: Mild bilateral periventricular white matter hypodensities likely chronic small vessel ischemic disease. No evidence of acute intracranial hemorrhage. No extra-axial fluid collections. No mass effect or midline shift. Ventricular size is appropriate. Basal cisterns are patent. No fractures identified.Khan-white differentiation is preserved.Globes and orbits are within normal limits. Paranasal sinuses and mastoid air cells are clear. 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 IMPRESSION: No acute intracranial findings. PROCEDURE: CT ANGIOGRAPHY CHEST Study: CT CHEST WITH CONTRAST - PULMONARY ANGIOGRAM History: Hypoxia. Covid positive. Comparison: None. Technique: Helical CT of the chest performed after the administration of 100 cc Omnipaque 350 intravenous contrast and timed for angiographic evaluation of the pulmonary arteries per PE protocol. Coronal and sagittal 3D MIP reformations were obtained. One or more of the following individualized dose reduction techniques were utilized for this examination: 1. Automated exposure control 2. Adjustment of the mA and/or kV according to patient size 3. Use of iterative reconstruction technique. Findings: Pulmonary Arteries: Significantly limited study for the detection of pulmonary emboli within the smaller pulmonary arteries due to the degree of respiratory motion. No saddle, main or lobar embolism. Main pulmonary artery caliber is within normal limits. Heart/Systemic Vasculature: No CT manifestations of overt right heart strain. Status post coronary artery bypass grafting with extensive calcific atherosclero sis of the [place] coronary arteries. Scattered atheromatous plaque along the aorta without aneurysmal dilatation. Mediastinum: Small hiatal hernia no concerning mediastinal or hilar lymph nodes based on size. Lungs: Multifocal groundglass opacities with a basilar and subpleural predilection. Neck/Axilla/Body Wall: Superficial fluid collection at the dorsal left paramidline upper back, image 39 series 3, measuring up to 1.9 cm transverse and most likely a sebaceous cyst given location. Upper Abdomen: The spleen is at the upper limits of normal for size measuring 13 cm transverse. The gallbladder is only partially included in the [id number] but appears filled with gallstones. Bones: Osteopenia and scattered degenerative changes. Miscellaneous: None. IMPRESSION: 1. Limited examination due to the extent of respiratory motion. No main or lobar embolism. The segmental and subsegmental pulmonary arteries are incompletely assessed. 2. Multifocal and bilateral groundglass airspace opacities with an imaging appearance and distribution consistent with the provided history of COVID-19. 3. Incompletely image gallbladder but the visualized portion appears filled with gallstones. 4. Upper limits of normal size of the spleen. 5. Additional chronic observations as above. Course & Med Decision Making: Course & Med Decision Making Pertinent Labs and Imaging studies reviewed. (See chart for details) 1257- I spoke with DR. Willson about the patient's elevated troponin and non- specific ECG changes. Dr. Willson reviewed the current ECG, requested a repeat EKG, if changes remain non-specific pt needs to be admitted for serial troponins and give 1 mg/kg of lovenox. Will advise if repeat ECG shows any changes 1322-spoke with Dr. Johnson who is the admitting physician, and care was assumed following discussion of patient. Will admit pt for elevated troponin, hypoglycemia, and COVID 19 Patient's vital signs stable. Patient remains afebrile, appears nontoxic, respirations even and unlabored. Patient will be admitted to the C[facility] floor. Patient's case and plan of care also discussed with Dr. Krishnamurthy [] Monalisa Disclaimer: Monalisa Disclaimer: This electronic medical record was generated, in whole or in part, using a voice recognition dictation system. Departure Departure Impression: Primary Impression: Elevated troponin Additional Impressions: Hypoglycemia COVID-19 Disposition: ADMITTED INPT THIS HOSP Admitting Physician: EAN Martin) Condition: STABLE Referrals: LESTER PAGE MD (PCP) Problem Qualifiers MIGUELANGEL WANG APRN Jul 03, 2020 11:50
[2020-07-03 11:57] LABS: BASO % 0 % (0-3); EOS % 0 % (0-3); HEMATOCRIT 36.7 % (39.0-53.0); HEMOGLOBIN 13.2 g/dL (13.0-17.5); LYMPH # 0.4 x10^3/uL (1.0-4.8); LYMPH % 4 % (24-48); MEAN CORPUSCULAR HEMOGLOBIN 31 pg (25-35); MEAN CORPUSCULAR HGB CONC 36 g/dL (31-37); MEAN CORPUSCULAR VOLUME 86 fL (79-100); MONO # 1.1 x10^3/uL (0.0-1.1); MONO % 13 % (0-9); NEUT # 7.4 x10^3/uL (1.8-7.7); NEUT % 83 % (31-73); PLATELET COUNT 242 x10^3/uL (140-400); RED BLOOD COUNT 4.28 x10^6/uL (4.30-5.70); RED CELL DISTRIBUTION WIDTH 12.9 % (11.5-14.5); WHITE BLOOD COUNT 8.9 x10^3/uL (4.0-11.0)
[2020-07-03 12:05] LABS: BILIRUBIN,URINE NEGATIVE (NEG); CLARITY,URINE CLEAR; COLOR,URINE AMBER; NITRITE,URINE NEGATIVE (NEG); PROTEIN,URINE >=300 mg/dL (NEG-TRACE)
[2020-07-03] MEDS ORDERED: IOHEXOL 350 MG/ML 100 ML VIAL. IV ONE (12:15)
[2020-07-03] MEDS ORDERED: CONTRAST GIVEN. MC PRN (12:15)
[2020-07-03 12:19] LABS: BACTERIA,URINE FEW /HPF (0-FEW); RBC,URINE 0 /HPF (0-2)
[2020-07-03 12:27] LABS: ALBUMIN 2.9 g/dL (3.4-5.0); ALBUMIN/GLOBULIN RATIO 0.9 (1.0-1.7); CALCIUM 9.1 mg/dL (8.5-10.1); CREATININE 0.9 mg/dL (0.7-1.3); GFR 82.7; MAGNESIUM 2.1 mg/dL (1.8-2.4); POTASSIUM 3.7 mmol/L (3.5-5.1); TOTAL BILIRUBIN 0.6 mg/dL (0.2-1.0); TOTAL PROTEIN 6.1 g/dL (6.4-8.2)
--- NOTE | 2020-07-03 13:20 | RAD ---
CT HEAD INDICATION: Confusion COMPARISON: 09/02/2018. Exposure: One or more of the following individualized dose reduction techniques were utilized for thi s examination: 1. Automated exposure control 2. Adjustment of the mA and/or kV according to patient size 3. Use of iterative reconstruction technique TECHNIQUE: 5 mm contiguous axial images were obtained from the skull base to the vertex in both bone and soft tissue algorithm. FINDINGS: Mild bilateral periventricular white matter hypodensities likely chronic small vessel ischemic diseas e. No evidence of acute intracranial hemorrhage. No extra-axial fluid collections. No mass effect or midline shift. Ventricular size is appropriate. Basal cisterns are patent. No fractures identified.Khan-white differentiation is preserved.Globes and orbits are within normal l imits. Paranasal sinuses and mastoid air cells are clear. Calcification of the left orbital globe l ikely phthisis bulbi. IMPRESSION: No acute intracranial findings. Electronically signed by: Fredy Orantes MD (07/03/2020 1:17 PM) [id number]
--- NOTE | 2020-07-03 13:24 | RAD ---
Study: CT CHEST WITH CONTRAST - PULMONARY ANGIOGRAM History: Hypoxia. Covid positive. Comparison: None. Technique: Helical CT of the chest performed after the administration of 100 cc Omnipaque 350 intrav enous contrast and timed for angiographic evaluation of the pulmonary arteries per PE protocol. Coron al and sagittal 3D MIP reformations were obtained. One or more of the following individualized dose reduction techniques were utilized for this examinat ion: 1. Automated exposure control 2. Adjustment of the mA and/or kV according to patient size 3. Use of iterative reconstruction technique. Findings: Pulmonary Arteries: Significantly limited study for the detection of pulmonary emboli within the smal ler pulmonary arteries due to the degree of respiratory motion. No saddle, main or lobar embolism. Ma in pulmonary artery caliber is within normal limits. Heart/Systemic Vasculature: No CT manifestations of overt right heart strain. Status post coronary ar efren bypass grafting with extensive calcific atherosclerosis of the [place] coronary arteries. Scatter ed atheromatous plaque along the aorta without aneurysmal dilatation. Mediastinum: Small hiatal hernia no concerning mediastinal or hilar lymph nodes based on size. Lungs: Multifocal groundglass opacities with a basilar and subpleural predilection. Neck/Axilla/Body Wall: Superficial fluid collection at the dorsal left paramidline upper back, image 39 series 3, measuring up to 1.9 cm transverse and most likely a sebaceous cyst given location. Upper Abdomen: The spleen is at the upper limits of normal for size measuring 13 cm transverse. The g allbladder is only partially included in the [id number] but appears filled with gallstones. Bones: Osteopenia and scattered degenerative changes. Miscellaneous: None. IMPRESSION: 1. Limited examination due to the extent of respiratory motion. No main or lobar embolism. The segme ntal and subsegmental pulmonary arteries are incompletely assessed. 2. Multifocal and bilateral groundglass airspace opacities with an imaging appearance and distributi on consistent with the provided history of COVID-19. 3. Incompletely image gallbladder but the visualized portion appears filled with gallstones. 4. Upper limits of normal size of the spleen. 5. Additional chronic observations as above. Electronically signed by: RAMESH PITTS MD (07/03/2020 1:22 PM) [id number]
[2020-07-03] MEDS ORDERED: IV DEXTROSE 10% 1,000 ML IV SCH (15:00)
--- NOTE | 2020-07-03 15:31 | PDOC2 ---
DOMINICKFEI JOHNSON SHANE 07/03/20 1531: CARDIAC CONSULT DATE OF CONSULT Date of Consult DATE: 07/03/20 TIME: 15:18 REASON FOR CONSULT Reason for Consult: Elevated troponin COVID REFERRING PHYSICIAN Referring Physician: Janey Sevilla APRN SOURCE Source: Chart review, Patient HISTORY OF PRESENT ILLNESS HISTORY OF PRESENT ILLNESS This is a 75 yo male who presented secondary to altered mental status. Over the last week, has had some shortness of breath, cough, and fevers. Patient tested + for COVID 06/25/20. Has had intermittent confusion for the last 3 days and poor appetite. Was more confused this morning and would not eat of drink so she called EMS. He presently denies any chest pain, dizziness, diaphoresis, or nausea/vomiting. Does reports some SOA. 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) FAMILY HISTORY Family History: Heart Disease, Hypertension SOCIAL HISTORY Smoke: Quit ALCOHOL: none Drugs: None Lives: with Family CURRENT MEDICATIONS CURRENT MEDICATIONS Current Medications Medications (Trade) Dose Ordered Sig/Fili Route PRN Reason Start Time Stop Time Status Last Admin Dose Admin Lorazepam (Ativan Inj) 1 mg 1X ONCE IV 07/03/20 11:30 07/03/20 11:31 DC 07/03/20 11:40 Dextrose (Dextrose 50%-Water Syringe) 25 gm 1X ONCE IV 07/03/20 11:45 07/03/20 11:46 DC 07/03/20 11:45 Iohexol (Omnipaque 350 Mg/ml) 100 ml 1X ONCE IV 07/03/20 12:15 07/03/20 12:16 DC 07/03/20 12:15 Dextrose (Dextrose 50%-Water Syringe) 25 gm 1X ONCE IV 07/03/20 13:15 07/03/20 13:19 DC 07/03/20 13:16 Enoxaparin Sodium (Lovenox 100mg Syringe) 90 mg 1X ONCE SQ 07/03/20 13:30 07/03/20 13:31 DC 07/03/20 15:05 Dextrose 1,000 ml @ 75 mls/hr [id number] IV 07/03/20 15:00 07/03/20 15:05 ALLERGIES ALLERGIES: Coded Allergies: Penicillins (Verified Allergy, Intermediate, 09/02/18) adhesive tape (Verified Allergy, Intermediate, 09/03/18) ROS Review of System 14 point ROS conducted although limited due to confusion PHYSICAL EXAM General: Alert, Cooperative, Other (oriented to person and place ) HEENT: Atraumatic Lungs: Other (on NC) Heart: Regular rate Abdomen: Soft, No tenderness Extremities: No edema Skin: No significant lesion Neuro: Normal speech, Sensation intact Psych/Mental Status: Other MUSCULOSKELETAL: Osteoarthritic changes both hands VITALS/I&O VITALS/I&O: Vital Signs Date Time Temp Pulse Resp B/P (MAP) Pulse Ox O2 Delivery O2 Flow Rate FiO2 07/03/20 10:55 98.1 86 28 206/150 (168) 88 Room Air 98.1 LABS Lab: Laboratory Tests Test 07/03/20 11:35 07/03/20 11:53 07/03/20 11:59 07/03/20 13:10 White Blood Count 8.9 x10^3/uL (4.0-11.0) Red Blood Count 4.28 x10^6/uL (4.30-5.70) L Hemoglobin 13.2 g/dL (13.0-17.5) Hematocrit 36.7 % (39.0-53.0) L Mean Corpuscular Volume 86 fL (79-100) Mean Corpuscular Hemoglobin 31 pg (25-35) Mean Corpuscular Hemoglobin Concent 36 g/dL (31-37) Red Cell Distribution Width 12.9 % (11.5-14.5) Platelet Count 242 x10^3/uL (140-400) Neutrophils (%) (Auto) 83 % (31-73) H Lymphocytes (%) (Auto) 4 % (24-48) L Monocytes (%) (Auto) 13 % (0-9) H Eosinophils (%) (Auto) 0 % (0-3) Basophils (%) (Auto) 0 % (0-3) Neutrophils # (Auto) 7.4 x10^3/uL (1.8-7.7) Lymphocytes # (Auto) 0.4 x10^3/uL (1.0-4.8) L Monocytes # (Auto) 1.1 x10^3/uL (0.0-1.1) Eosinophils # (Auto) 0.0 x10^3/uL (0.0-0.7) Basophils # (Auto) 0.0 x10^3/uL (0.0-0.2) Sodium Level 129 mmol/L (136-145) L Potassium Level 3.7 mmol/L (3.5-5.1) Chloride Level 96 mmol/L (98-107) L Carbon Dioxide Level 23 mmol/L (21-32) Anion Gap 10 (6-14) Blood Urea Nitrogen 24 mg/dL (8-26) Creatinine 0.9 mg/dL (0.7-1.3) Estimated GFR (Cockcroft-Gault) 82.7 BUN/Creatinine Ratio 27 (6-20) H Glucose Level 20 mg/dL (70-99) *L Lactic Acid Level 0.8 mmol/L (0.4-2.0) Calcium Level 9.1 mg/dL (8.5-10.1) Magnesium Level 2.1 mg/dL (1.8-2.4) Total Bilirubin 0.6 mg/dL (0.2-1.0) Aspartate Amino Transferase (AST) 106 U/L (15-37) H Alanine Aminotransferase (ALT) 85 U/L (16-63) H Alkaline Phosphatase 60 U/L (46-116) Creatine Kinase 294 U/L (39-308) Creatine Kinase MB (Mass) 5.5 ng/mL (0.0-3.6) H Creatine Kinase MB Relative Index 1.9 % (0-4) Troponin I Quantitative 1.447 ng/mL (0.000-0.055) QS-Qcx-V-Type Natriuretic Peptide 2870 pg/mL (0-124) H Total Protein 6.1 g/dL (6.4-8.2) L Albumin 2.9 g/dL (3.4-5.0) L Albumin/Globulin Ratio 0.9 (1.0-1.7) L Lipase 328 U/L (73-393) Urine Collection Type Unknown Urine Color Ewelina Urine Clarity Clear Urine pH 6.0 (<5.0-8.0) Urine Specific [place] >=1.030 (1.000-1.030) Urine Protein >=300 mg/dL (NEG-TRACE) Urine Glucose (UA) Negative mg/dL (NEG) Urine Ketones (Stick) Trace mg/dL (NEG) Urine Blood Small (NEG) Urine Nitrite Negative (NEG) Urine Bilirubin Negative (NEG) Urine Urobilinogen Dipstick 2.0 mg/dL (0.2 mg/dL) Urine Leukocyte Esterase Negative (NEG) Urine RBC 0 /HPF (0-2) Urine WBC 1-4 /HPF (0-4) Urine Squamous Epithelial Cells Few /LPF Urine Bacteria Few /HPF (0-FEW) Urine Mucus Slight /LPF Glucose (Fingerstick) 115 mg/dL (70-99) H 20 mg/dL (70-99) *L Test 07/03/20 14:20 07/03/20 15:13 Glucose (Fingerstick) 49 mg/dL (70-99) L 38 mg/dL (70-99) *L Laboratory Tests 07/03/20 11:35 Laboratory Tests 07/03/20 11:35 ECHOCARDIOGRAM ECHOCARDIOGRAM <Conclusion> The left ventricular systolic function is normal and the ejection fraction is within normal range. The Ejection Fraction is >55%. There is normal LV segmental wall motion. DATE: 08/09/18 1021 STRESS TEST STRESS TEST Conclusion 1. No evidence of EKG changes with stress testing. 2. Normal perfusion at stress/rest. 3. Low risk study. 4. EF > 60%. DATE: 08/09/18 1550 ASSESSMENT/PLAN ASSESSMENT/PLAN 1. Metabolic encephalopathy; CT head without acute findings 2. Acute respiratory failure with COVID PNA 3. Diabetes, II with profound hypoglycemia in the setting of sepsis 4. Hypertensive urgency 5. NSTEMIl; initial trop 1.4; most probable type II, demand ischemic in setting of above. MPI 08/10 with normal perfusion. s/p Lovenox. 6. Elevated LFTS 7. CAD s/p CABG 7. Hyperlipidemia Recommendations ASA Resume secondary prevention No statin with elevated LFTs Trend troponin Resume home antiHTN therapy. Titrate as warranted Hydralazine IV PRN Ongoing lung optimization Outpatient echo when recovered from COVID CINDY GARCIA MD 07/04/20 1146: CARDIAC CONSULT ASSESSMENT/PLAN ASSESSMENT/PLAN Agree with above PRODUCTION PLANNER SCHEDULER note. Late entry for 07/03/20. Pt. due to likely sepsis with hypoglycemia/tachpynea from COVID. No clear cardiac insult noted. DOMINICKFEI JOHNSON APRN Jul 03, 2020 15:31 CINDY GARCIA MD Jul 04, 2020 11:46
[2020-07-03 17:26] VITALS: BP 184/83
--- NOTE | 2020-07-03 18:38 | NUR ---
Pt arrived on unit via bed at approx 1710 by ED staff. POC/orders reviewed. Tele monitor applied. D10 infusing at 100 mL/hr. Pt denies pain upon admission. Dinner tray and fresh water given. Will assume care of this pt.
[2020-07-03 19:00] VITALS: BP 159/69
[2020-07-03] MEDS ORDERED: ASCO500C PO (19:00)
[2020-07-03] MEDS ORDERED: VITA1CAP PO (19:00)
[2020-07-03] MEDS ORDERED: NIAC500C6 PO (19:00)
--- NOTE | 2020-07-03 19:44 | HP ---
ADMIT DATE: 07/03/2020 CHIEF COMPLAINT: Mental status change. HISTORY OF PRESENT ILLNESS: The patient is a pleasant middle-aged male who developed mental status change. He threw his pillow at his . She states when he acts like that, he is hypoglycemic. She called the ambulance and indeed his glucose was low at 55, they give him an amp of D50, it went up to 115, now here in the ER it has dropped back down to 30s and we gave him more glucose. Now, the patient has been admitted to the 6th floor where we are checking him for COVID because he had COVID-19 on 06/25/2020. He also has elevation of his troponin at 1.9. We are consulting Cardiology. PAST MEDICAL HISTORY: Recent COVID-19, CAD, diabetes, hypertension, hyperlipidemia, left eye cancer, cholecystectomy, coronary artery bypass surgery, hip replacement, left eye globectomy. ALLERGIES: PENICILLIN AND ADHESIVE TAPE. FAMILY HISTORY: Coronary artery disease. SOCIAL HISTORY: He quit smoking. No drink or drugs. He is retired. MEDICATIONS: Reviewed, please refer to the MRAD. REVIEW OF SYSTEMS: GENERAL: No history of weight change, weakness or fevers. SKIN: No bruising, hair changes or rashes. EYES: No blurred, double or loss of vision. NOSE AND THROAT: No history of nosebleeds, hoarseness or sore throat. HEART: No history of palpitations, chest pain. He complains of some shortness of breath. LUNGS: Denies cough, hemoptysis, wheezing or shortness of breath. GASTROINTESTINAL: Denies changes in appetite, nausea, vomiting, diarrhea or constipation. GENITOURINARY: No history of frequency, urgency, hesitancy or nocturia. NEUROLOGIC: Denies history of numbness, tingling, tremor or weakness. PSYCHIATRIC: No history of panic, anxiety or depression. ENDOCRINE: No history of heat or cold intolerance, polyuria or polydipsia. EXTREMITIES: Denies muscle weakness, joint pain, pain on walking or stiffness. PHYSICAL EXAMINATION: VITALS: Within normal limits and are stable. GENERAL: No apparent distress. Alert and oriented. HEENT: Normal cephalic atraumatic, external auditory canals are patent. 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 MUSCULOSKELETAL: Well developed, well nourished, good range of motion. ENDOCRINE: No thyromegaly was palpated. LYMPHATICS: No cervical chain or axillary nodes were noted. HEMATOPOIETIC: No bruising. NECK: Supple, no JVD, no thyromegaly was noted. LUNGS: Clear to auscultation in all lung gonzales without rhonchi or wheezing. HEART: RRR, S1, S2 present. Peripheral pulses intact, no obvious murmurs were noted. ABDOMEN: Soft, nontender. Positive bowel sounds no organomegaly, normal bowel sounds. EXTREMITIES: Without any cyanosis, clubbing, or edema. Pedal pulses intact, Homans sign is negative. NEUROLOGIC: He is currently alert and oriented. PSYCHIATRIC: Normal affect, normal mood. Stable. SKIN: No ulcerations or rashes, good skin turgor, no jaundice. VASCULAR: Good capillary refill, neurovascular bundle appears to be intact. LABORATORY DATA: Glucose is ranging from 104 to as low as 38 minutes. ASSESSMENT AND PLAN: Symptomatic hypoglycemia with the incidental finding of elevated troponin. We are giving the patient amps of D50 and we have D10 hanging as well. We are consulting Cardiology. We have him on the COVID floor. Serial enzymes, serial EKGs, home medications, DVT prophylaxis. Full code. Long-term prognosis is guarded. THAO MATTHEW DO DR: SIMA/ben JOB#: [id number] / [id number]
--- NOTE | 2020-07-03 19:50 | NUR ---
Patient BS @1944 was 44. RN attempted to pull dextrose to give but none ordered, RN ordered per protocol, 25 Grams administered according to protocol, BS then rechecked at 2024 which was 118.
[2020-07-03] MEDS ORDERED: DEXTROSE 50% 25 GM / 50ML DISP.SYRIN. IV PRN (20:00)
[2020-07-03] MEDS ORDERED: HYDROcodone/APAP 5/325MG 1 TAB TABLET PO PRN (21:45)
[2020-07-03] MEDS ORDERED: guaiFENesin ORAL 200 MG/10 ML LIQUID. PO PRN (21:45)
[2020-07-03] MEDS ORDERED: ASPIRIN CHEWABLE 81 MG TABLET. PO ONE (22:00)
[2020-07-03] MEDS ORDERED: hydrALAZINE 20 MG/ML VIAL. IVP PRN (22:15)
--- NOTE | 2020-07-03 22:26 | PDOC5 ---
CODE REPORT CODE REPORT Patient is a 75-year-old male who was admitted earlier today for coronavirus 19, elevated troponin, hypoglycemia. I responded to a CODE BLUE on the sixth floor. Upon my arrival CPR had been initiated but no medications have been given. Epinephrine was given after my arrival. Patient was found to be in ventricular fibrillation and was shocked twice during the code. He was given amiodarone, bicarbonate, glucose, calcium, and epinephrine as appropriate. Patient was intubated without difficulty. After extensive efforts, patient did not regain a pulse. Time of was called at 2212. Dr. Johnson was called. Intubation Performed by: Madan García MD Consent: Verbal consent not obtained. The procedure was performed in an emergent situation. Required items: required blood products, implants, devices, and special equipmen t available Patient identity confirmed: arm band Time out: Immediately prior to procedure a "time out" was called to verify the correct patient, procedure, equipment, clerical support and site/side marked as required. Indications: respiratory failure and airway protection Intubation method: direct Patient status: paralyzed (RSI) Preoxygenation: [id number] Sedatives: etomidate Paralytic: succinylcoline Laryngoscope size: Mac 4 Tube size: 7.5 mm Tube type: cuffed Number of attempts: 1 Cords visualized: yes Post-procedure assessment: chest rise, BS = bilaterally none over epigastrum, +CO2 detector Breath sounds: equal and absent over the epigastrium Cuff inflated: yes Tube secured with: adhesive tape Chest x-ray interpreted by me. Chest x-ray findings: endotracheal tube in appropriate position Patient tolerance: Patient tolerated the procedure well with no immediate c omplications. MADAN GARCÍA MD Jul 03, 2020 22:26
[2020-07-04] MEDS ORDERED: EPINEPHrine SYRINGE 1 MG/10 ML SYRINGE ONE (00:25)
[2020-07-04] MEDS ORDERED: CALCIUM CHLORIDE 1,000 MG/10 ML DISP.SYRIN ONE (00:25)
[2020-07-04] MEDS ORDERED: DEXTROSE 50% 25 GM / 50ML DISP.SYRIN. IV ONE (00:25)
[2020-07-04] MEDS ORDERED: AMIODARONE 150 MG/3 ML VIAL ONE (00:25)
[2020-07-04] MEDS ORDERED: SODIUM BICARB ADULT 8.4% 50 MEQ/50 ML DISP.SYRIN. ONE (00:25)
--- NOTE | 2020-07-04 03:04 | NUR ---
paged at 1849 d/t anxiousness ( noted upon RN's first rounds), complaints of back pain, and urinary frequency with retention. RN received call back from answering service at 2124, answering service was able to connect me to Dr. Johnson. Dr. Johnson notified of anxiousness, back pain and continued need for dextrose. IV ativan and hydrocodone ordered and RN advised to continue to monitor BS hourly and administer dextrose as needed. GENERAL WAREHOUSE WORKER was rechecking BS at 2019 when aide entered room he was found to be having what appeared to be a seizure, BS checked and BS at that time was 32, this RN went to retrieve ativan for seizure and dextrose for blood sugar, during that time another RN on the floor entered room to help and noticed patient was not breathing, maty davies called at approximately 2129. See maty davies record. Patient pronounced at 2111. Notified family @ approximately 2119 of patient passing. Permission given from nursing traffic sign supervisor to for 2 family members to come and view. Patient belongings sent with family, family to notify of decision on home and autopsy.
[2020-07-04] MEDS ORDERED: PANTOPRAZOLE 40 MG TABLET.DR. PO SCH (07:30)
[2020-07-04] MEDS ORDERED: ASPIRIN ENTERIC COATED 81 MG TABLET.DR. PO SCH (08:00)
[2020-07-04] MEDS ORDERED: NIACIN ER 250 MG CAPSULE.ER PO SCH (09:00)
[2020-07-04] MEDS ORDERED: LISINOPRIL 20 MG TABLET PO SCH (09:00)
[2020-07-04] MEDS ORDERED: ATORVASTATIN CALCIUM 40 MG TABLET. PO SCH (21:00)
[2020-07-04] MEDS ORDERED: ATENOLOL 25 MG TABLET. PO SCH (21:00)
== END 2020-07-04 03:41 | DRG 871 ==
LOC: ER 10:50 → 6 SOUTH 13:22
PROVIDERS: ADMIT Internal Medicine; ATTEND Internal Medicine
DX: A41.89 Other specified sepsis (principal); G93.41 Metabolic encephalopathy; J96.00 Acute respiratory failure, unspecified whether with hypoxia or hypercapnia; U07.1 COVID-19; J12.82 Pneumonia due to coronavirus disease 2019; Z96.649 Presence of unspecified artificial hip joint; E11.649 Type 2 diabetes mellitus with hypoglycemia without coma; I16.0 Hypertensive urgency; E78.5 Hyperlipidemia, unspecified; I10 Essential (primary) hypertension; K80.20 Calculus of gallbladder without cholecystitis without obstruction; I25.10 Atherosclerotic heart disease of native coronary artery without angina pectoris; E78.00 Pure hypercholesterolemia, unspecified; Z85.840 Personal history of malignant neoplasm of eye; Z95.1 Presence of aortocoronary bypass graft; Z90.49 Acquired absence of other specified parts of digestive tract; Z90.01 Acquired absence of eye; Z88.0 Allergy status to penicillin; Z91.048 Other nonmedicinal substance allergy status; Z87.891 Personal history of nicotine dependence; Z82.49 Family history of ischemic heart disease and other diseases of the circulatory system
CPT/HCPCS: 36415; 70450; 71275; 80053; 81001; 82553; 82962; 83605; 83690; 83735; 83880; 84484; 85025; 93005; 96365; 96366; 96372; 96375; 99285; J0171; J0282; J1650; J2060; J3490; Q9967; G0378